=== PATIENT | female | born 1935 | race Caucasian/White ===

== ENCOUNTER 2016-12-10 08:15 | Inpatient (IN) | payer OTHER ==
[~2016-12-10] VITALS: Ht 170.2 cm; Wt 104.8 kg
[~2016-12-10 08:15] MED LIST: B-121000 MC2 PO; COZAAR50 MG PO; DUONEB 2.5-0.5 M3 ML AEROSOL; LASIX40 MG PO; LEVO-T50 MCG PO; LOSARTAN POTAS100 MG PO; LOW DOSE ASPIRI81 M1 PO; METOPROLOL SUCC25 MG PO; METOPROLOL SUCC50 MG PO; MEVACOR40 MG PO; PAXIL20 MG PO; PREDNISONE10 MG PO; PROBIOTIC1 EAC1 PO; SYMBICORT60 INHALAT IH; TOPROL XL50 MG PO; VENTOLIN HFA18 GM IH; VITAMIN D31000 UNI2 PO
[2016-12-10 09:25] LABS: BASOPHIL COUNT 0.1 K/uL (0-0.1); EOSINOPHIL (%) 1.4 % (0-5); EOSINOPHIL COUNT 0.3 K/uL (0-0.3); HEMATOCRIT 35.6 % (36.0-46.0); IMMATURE GRANULOCYTE (%) 0.4 % (0.0-0.7); IMMATURE GRANULOCYTE COUNT 0.8 K/uL; LYMPHOCYTE COUNT 1.3 K/uL (1.0-2.8); MCH 30.2 PG (29.0-34.0); MCHC 32.9 G/DL (30.0-36.0); MEAN PLAT.VOLUME 10.1 uM^3 (9.5-12.4); MONOCYTE (%) 4.9 % (3-12); NEUTROPHIL (%) 86.7 % (45-76); NEUTROPHIL COUNT 17.7 K/uL (1.8-6.4); PLATELET COUNT 285 K/uL (156-360); RBC DIS.WIDTH-CV 14.5 % (11.8-14.6); RBC DIS.WIDTH-SD 47.5 % (39-53); RED BLOOD COUNT 3.87 M/uL (3.80-5.20); WHITE BLOOD COUNT 20.4 K/uL (4.1-10.2)
[2016-12-10 09:37] LABS: CHLORIDE 98 mEq/L (99-109); POTASSIUM 3.9 mEq/L (3.7-5.4); SODIUM 139 mEq/L (136-147)
[2016-12-10 09:38] LABS: GLUCOSE 152 mg/dL (70-99)
[2016-12-10 09:40] LABS: ANION GAP 14 MEQ/L (2-14)
[2016-12-10 09:42] LABS: GFR ESTIMATE (CALCULATED) 46 mL/min/
[2016-12-10 09:43] LABS: UREA NITROGEN (BUN) 16 mg/dL (9-23)
[2016-12-10 09:45] LABS: TROP-I INTERPRETATION NEGATIVE; TROPONIN-I 0.03 ng/mL (0.0-0.30)
[2016-12-10] MEDS ORDERED: LASIX40 MG PO (11:57)
[2016-12-10] MEDS ORDERED: LOSARTAN POTASS50 MG PO (11:59)
[2016-12-10] MEDS ORDERED: PROBIOTIC1 EAC1 PO (12:01)
[2016-12-10] MEDS ORDERED: OCEAN NASAL 0.645 ML BOTH NARES (12:02)
[2016-12-10 15:41] LABS: D-DIMER ELISA 1.95 mg/L FEU (< 0.57)
[2016-12-10 16:20] VITALS: BP 151/76
[2016-12-10 18:55] LABS: TROP-I INTERPRETATION NEGATIVE; TROPONIN-I 0.05 ng/mL (0.0-0.30)
[2016-12-10 20:57] VITALS: BP 130/63
[2016-12-11 00:34] VITALS: BP 167/77
[2016-12-11 04:16] VITALS: BP 118/60
[2016-12-11 07:14] LABS: ANION GAP 11 MEQ/L (2-14); CHLORIDE 98 MEQ/L (99-109); GFR ESTIMATE (CALCULATED) 38 mL/min/; GLUCOSE 123 mg/dL (70-99); POTASSIUM 3.8 MEQ/L (3.7-5.4); SAMPLE HEMOLYSIS CHECK 0; SAMPLE ICTERIC CHECK 0; SAMPLE LIPEMIA CHECK 0; SODIUM 139 MEQ/L (136-147); UREA NITROGEN (BUN) 21 mg/dL (9-23)
[2016-12-11 07:29] LABS: HEMATOCRIT 32.9 % (36.0-46.0); MCH 28.9 PG (29.0-34.0); MCHC 31.3 G/DL (30.0-36.0); MCV 92.4 FL (83-99); MEAN PLAT.VOLUME 10.3 uM^3 (9.5-12.4); PLATELET COUNT 264 K/uL (156-360); RBC DIS.WIDTH-CV 14.8 % (11.8-14.6); RBC DIS.WIDTH-SD 49.6 % (39-53); RED BLOOD COUNT 3.56 M/uL (3.80-5.20)
[2016-12-11 07:32] LABS: WHITE BLOOD COUNT 11.6 K/uL (4.1-10.2)
[2016-12-11 07:55] VITALS: BP 143/73
[2016-12-11 11:20] VITALS: BP 158/83
[2016-12-11 15:40] VITALS: BP 155/82
[2016-12-11 19:46] VITALS: BP 133/71
[2016-12-12] VITALS: BP 160/74
[2016-12-12 04:00] VITALS: BP 112/55
[2016-12-12 08:02] VITALS: BP 126/54
[2016-12-12 09:04] LABS: HEMATOCRIT 32.3 % (36.0-46.0); MCH 30.2 PG (29.0-34.0); MCHC 32.8 G/DL (30.0-36.0); MEAN PLAT.VOLUME 10.5 uM^3 (9.5-12.4); PLATELET COUNT 265 K/uL (156-360); RBC DIS.WIDTH-CV 14.8 % (11.8-14.6); RBC DIS.WIDTH-SD 49.8 % (39-53); RED BLOOD COUNT 3.51 M/uL (3.80-5.20); WHITE BLOOD COUNT 12.5 K/uL (4.1-10.2)
[2016-12-12 09:46] LABS: ANION GAP 11 MEQ/L (2-14); CHLORIDE 99 MEQ/L (99-109); GFR ESTIMATE (CALCULATED) 50 mL/min/; GLUCOSE 126 mg/dL (70-99); POTASSIUM 3.9 MEQ/L (3.7-5.4); SAMPLE HEMOLYSIS CHECK 0; SAMPLE ICTERIC CHECK 0; SAMPLE LIPEMIA CHECK 0; SODIUM 138 MEQ/L (136-147); UREA NITROGEN (BUN) 21 mg/dL (9-23)
[2016-12-12 11:36] VITALS: BP 115/64
[2016-12-12 16:08] VITALS: BP 116/55
[2016-12-12 19:38] VITALS: BP 118/54
[2016-12-13] VITALS (7 sets, daily range): BP systolic 108–141; BP diastolic 51–66
[2016-12-14 03:39] VITALS: BP 138/63
[2016-12-14 07:57] VITALS: BP 157/76
[2016-12-14 15:43] VITALS: BP 154/81
[2016-12-15 00:12] VITALS: BP 133/63
[2016-12-15 07:39] VITALS: BP 139/66
[2016-12-15] MEDS ORDERED: PREDNISONE10 MG PO (13:03)
[2016-12-15] MEDS ORDERED: CEFDINIR300 MG PO (13:03)
== END 2016-12-15 14:26 | disposition home or self-care (01) | DRG 190 ==
LOC: EME 08:15 → 5SOUTH 12:39 → EDOF 12:39 → 5SOUTH 15:52
PROVIDERS: Emergency Medicine; Internal Medicine; Nurse Practitioner Adult Health
DX: J44.1 Chronic obstructive pulmonary disease with (acute) exacerbation (principal); J18.9 Pneumonia, unspecified organism; I50.32 Chronic diastolic (congestive) heart failure; F33.9 Major depressive disorder, recurrent, unspecified; N18.3 Chronic kidney disease, stage 3 (moderate); E78.5 Hyperlipidemia, unspecified; I25.10 Atherosclerotic heart disease of native coronary artery without angina pectoris; I12.9 Hypertensive chronic kidney disease with stage 1 through stage 4 chronic kidney disease, or unspecified chronic kidney disease; E66.9 Obesity, unspecified; R09.02 Hypoxemia; R59.0 Localized enlarged lymph nodes; J20.9 Acute bronchitis, unspecified; J84.10 Pulmonary fibrosis, unspecified; E03.9 Hypothyroidism, unspecified; M12.9 Arthropathy, unspecified; Z60.2 Problems related to living alone; Z99.81 Dependence on supplemental oxygen; Z87.891 Personal history of nicotine dependence; Z68.36 Body mass index [BMI] 36.0-36.9, adult; Z88.6 Allergy status to analgesic agent; Z95.5 Presence of coronary angioplasty implant and graft; Z88.2 Allergy status to sulfonamides; Z95.2 Presence of prosthetic heart valve
CPT/HCPCS: 71010; 71020; 71250; 78582; 80048; 83605; 83880; 84443; 84484; 85025; 85027; 85379; 87040; 87070; 87205; 93005; 94640; 94640 76; 94644; 94760; 94799; 99202; 99281; 99285; A9540; A9567; J0692; J1650; J1940; J1956; J2930; J7030; J7050; J7644

== ENCOUNTER 2017-02-11 16:51 | Inpatient (IN) | payer OTHER ==
[~2017-02-11] VITALS: Ht 170.2 cm; Wt 105.3 kg
[~2017-02-11 16:51] MED LIST changes: +CEFDINIR300 MG PO; +LOSARTAN POTASS50 MG PO; +OCEAN NASAL 0.645 ML BOTH NARES
[2017-02-11 17:56] LABS: BASOPHIL COUNT 0.1 K/uL (0-0.1); EOSINOPHIL (%) 1.4 % (0-5); EOSINOPHIL COUNT 0.1 K/uL (0-0.3); HEMATOCRIT 34.9 % (36.0-46.0); IMMATURE GRANULOCYTE (%) 0.2 % (0.0-0.7); INSTRUMENT ABS NEUTROPHIL CT 8.4 K/uL; LYMPHOCYTE COUNT 0.9 K/uL (1.0-2.8); MCH 27.9 PG (29.0-34.0); MCHC 32.1 G/DL (30.0-36.0); MCV 86.8 FL (83-99); MEAN PLAT.VOLUME 9.2 uM^3 (9.5-12.4); MONOCYTE (%) 7.2 % (3-12); MONOCYTE COUNT 0.7 K/uL (0-0.8); NEUTROPHIL (%) 81.9 % (45-76); NEUTROPHIL COUNT 8.4 K/uL (1.8-6.4); PLATELET COUNT 296 K/uL (156-360); RBC DIS.WIDTH-CV 15.3 % (11.8-14.6); RBC DIS.WIDTH-SD 48.6 % (39-53); RED BLOOD COUNT 4.02 M/uL (3.80-5.20); WHITE BLOOD COUNT 10.2 K/uL (4.1-10.2)
[2017-02-11 18:18] LABS: CHLORIDE 86 mEq/L (99-109); POTASSIUM 3.5 mEq/L (3.7-5.4); SODIUM 127 mEq/L (136-147)
[2017-02-11 18:20] LABS: GLUCOSE 112 mg/dL (70-99)
[2017-02-11 18:22] LABS: ANION GAP 12 MEQ/L (2-14)
[2017-02-11 18:24] LABS: ALKALINE PHOSPHATASE 80 IU/L (3-129); GFR ESTIMATE (CALCULATED) 56 mL/min/
[2017-02-11 18:25] LABS: UREA NITROGEN (BUN) 12 mg/dL (9-23)
[2017-02-11 18:29] LABS: TROP-I INTERPRETATION NEGATIVE; TROPONIN-I < 0.01 ng/mL (0.0-0.30)
[2017-02-11 18:32] LABS: D-DIMER ELISA 1.94 mg/L FEU (< 0.57)
[2017-02-11] MEDS ORDERED: DUONEB 2.5-0.5 M3 ML AEROSOL (22:13)
[2017-02-11] MEDS ORDERED: PAXIL30 MG PO (22:14)
[2017-02-11] MEDS ORDERED: METOLAZONE5 MG PO (22:15)
[2017-02-11] MEDS ORDERED: ZOFRAN4 MG PO (22:15)
[2017-02-11] MEDS ORDERED: TYLENOL EXTRA500 MG PO (22:15)
[2017-02-12 01:35] VITALS: BP 119/57
[2017-02-12 01:40] LABS: TROP-I INTERPRETATION NEGATIVE; TROPONIN-I 0.02 ng/mL (0.0-0.30)
[2017-02-12 03:20] VITALS: BP 112/78
[2017-02-12 07:28] LABS: TROP-I INTERPRETATION NEGATIVE; TROPONIN-I 0.02 ng/mL (0.0-0.30)
[2017-02-12 10:49] LABS: HEMATOCRIT 34.4 % (36.0-46.0); MCH 27.7 PG (29.0-34.0); MCHC 31.4 G/DL (30.0-36.0); MCV 88.2 FL (83-99); MEAN PLAT.VOLUME 10.2 uM^3 (9.5-12.4); PLATELET COUNT 279 K/uL (156-360); RBC DIS.WIDTH-CV 15.7 % (11.8-14.6); RBC DIS.WIDTH-SD 50.4 % (39-53); WHITE BLOOD COUNT 10.2 K/uL (4.1-10.2)
[2017-02-12 11:08] LABS: ANION GAP 13 MEQ/L (2-14); CHLORIDE 84 MEQ/L (99-109); GFR ESTIMATE (CALCULATED) 56 mL/min/; GLUCOSE 129 mg/dL (70-99); POTASSIUM 3.5 MEQ/L (3.7-5.4); SAMPLE HEMOLYSIS CHECK 0; SAMPLE ICTERIC CHECK 0; SAMPLE LIPEMIA CHECK 0; SODIUM 129 MEQ/L (136-147); UREA NITROGEN (BUN) 12 mg/dL (9-23)
[2017-02-12 11:59] VITALS: BP 137/61
[2017-02-12 16:00] VITALS: BP 135/60
[2017-02-12 19:30] VITALS: BP 132/71
[2017-02-13 00:40] VITALS: BP 133/63
[2017-02-13 04:52] VITALS: BP 136/62
[2017-02-13 09:42] LABS: HEMATOCRIT 33.6 % (36.0-46.0); MCH 27.8 PG (29.0-34.0); MCHC 32.1 G/DL (30.0-36.0); MCV 86.6 FL (83-99); MEAN PLAT.VOLUME 9.7 uM^3 (9.5-12.4); PLATELET COUNT 272 K/uL (156-360); RBC DIS.WIDTH-CV 15.5 % (11.8-14.6); RBC DIS.WIDTH-SD 49.1 % (39-53); RED BLOOD COUNT 3.88 M/uL (3.80-5.20)
[2017-02-13 09:45] LABS: WHITE BLOOD COUNT 7.1 K/uL (4.1-10.2)
[2017-02-13 09:46] LABS: ANION GAP 11 MEQ/L (2-14); CHLORIDE 85 MEQ/L (99-109); POTASSIUM 3.6 MEQ/L (3.7-5.4); SAMPLE HEMOLYSIS CHECK 0; SAMPLE ICTERIC CHECK 0; SAMPLE LIPEMIA CHECK 0; SODIUM 130 MEQ/L (136-147)
[2017-02-13 09:53] LABS: GFR ESTIMATE (CALCULATED) 46 mL/min/; GLUCOSE 177 mg/dL (70-99)
[2017-02-13 09:54] LABS: UREA NITROGEN (BUN) 21 mg/dL (9-23)
[2017-02-13 12:00] VITALS: BP 165/85
[2017-02-13 16:24] VITALS: BP 130/59
[2017-02-13 20:05] VITALS: BP 125/75
[2017-02-14 00:08] VITALS: BP 112/58
[2017-02-14 04:24] VITALS: BP 135/79
[2017-02-14 09:00] VITALS: BP 163/71
[2017-02-14 09:26] LABS: HEMATOCRIT 33.9 % (36.0-46.0); MCH 27.5 PG (29.0-34.0); MCHC 31.6 G/DL (30.0-36.0); MCV 87.1 FL (83-99); PLATELET COUNT 283 K/uL (156-360); RBC DIS.WIDTH-CV 15.6 % (11.8-14.6); RBC DIS.WIDTH-SD 49.6 % (39-53); RED BLOOD COUNT 3.89 M/uL (3.80-5.20); WHITE BLOOD COUNT 6.5 K/uL (4.1-10.2)
[2017-02-14 09:47] LABS: ANION GAP 10 MEQ/L (2-14); CHLORIDE 85 MEQ/L (99-109); GFR ESTIMATE (CALCULATED) 42 mL/min/; GLUCOSE 200 mg/dL (70-99); POTASSIUM 3.9 MEQ/L (3.7-5.4); SAMPLE HEMOLYSIS CHECK 0; SAMPLE ICTERIC CHECK 0; SAMPLE LIPEMIA CHECK 0; SODIUM 131 MEQ/L (136-147); UREA NITROGEN (BUN) 30 mg/dL (9-23)
[2017-02-14 12:06] VITALS: BP 135/65
[2017-02-14 15:46] VITALS: BP 132/66
[2017-02-14 21:54] VITALS: BP 133/73
[2017-02-15 00:23] VITALS: BP 137/81
[2017-02-15 04:39] VITALS: BP 140/80
[2017-02-15 08:40] VITALS: BP 137/78
[2017-02-15 16:11] VITALS: BP 142/66
[2017-02-15 20:15] VITALS: BP 135/82
[2017-02-15 23:57] VITALS: BP 142/80
[2017-02-16 04:51] VITALS: BP 146/72
[2017-02-16 07:27] LABS: EOSINOPHIL (%) 0.1 % (0-5); HEMATOCRIT 34.3 % (36.0-46.0); IMMATURE GRANULOCYTE (%) 0.6 % (0.0-0.7); IMMATURE GRANULOCYTE COUNT 0.1 K/uL; INSTRUMENT ABS NEUTROPHIL CT 6.7 K/uL; LYMPHOCYTE COUNT 0.8 K/uL (1.0-2.8); MCH 27.4 PG (29.0-34.0); MCHC 30.9 G/DL (30.0-36.0); MCV 88.6 FL (83-99); MEAN PLAT.VOLUME 9.8 uM^3 (9.5-12.4); MONOCYTE (%) 11.1 % (3-12); MONOCYTE COUNT 0.9 K/uL (0-0.8); NEUTROPHIL (%) 79.2 % (45-76); NEUTROPHIL COUNT 6.7 K/uL (1.8-6.4); PLATELET COUNT 257 K/uL (156-360); RBC DIS.WIDTH-CV 15.7 % (11.8-14.6); RBC DIS.WIDTH-SD 50.6 % (39-53); RED BLOOD COUNT 3.87 M/uL (3.80-5.20); WHITE BLOOD COUNT 8.4 K/uL (4.1-10.2)
[2017-02-16 07:31] LABS: ANION GAP 7 MEQ/L (2-14); CHLORIDE 87 MEQ/L (99-109); GFR ESTIMATE (CALCULATED) 42 mL/min/; GLUCOSE 165 mg/dL (70-99); MAGNESIUM 1.8 mg/dl (1.3-2.7); POTASSIUM 3.9 MEQ/L (3.7-5.4); SAMPLE HEMOLYSIS CHECK 0; SAMPLE ICTERIC CHECK 0; SAMPLE LIPEMIA CHECK 0; SODIUM 134 MEQ/L (136-147)
[2017-02-16 07:34] LABS: UREA NITROGEN (BUN) 47 mg/dL (9-23)
[2017-02-16 08:38] VITALS: BP 174/85
[2017-02-16 10:07] LABS: BASE EXCESS 16.5 mEq/L (-3 to +3); BICARBONATE 42.9 mEq/L (22-26); CARBOXY HGB 2.4 % (0-5); METHEMOGLOBIN 1.2 % (0-1.5); PCO2 59 mm Hg (35-45); PO2 66 mm Hg (80-100); pH 7.47 (7.35-7.45)
[2017-02-16 10:08] LABS: COMMENTS - BLOOD GASES NAC+; DEVICE CANNULA; O2 FLOW 2 L/MIN; SITE LR
[2017-02-16 12:09] VITALS: BP 136/65
[2017-02-16 17:26] VITALS: BP 174/78
[2017-02-16 20:25] VITALS: BP 140/72
[2017-02-17 00:19] VITALS: BP 141/75
[2017-02-17 04:30] VITALS: BP 169/79
[2017-02-17 06:52] LABS: EOSINOPHIL (%) 0.3 % (0-5); HEMATOCRIT 34.4 % (36.0-46.0); IMMATURE GRANULOCYTE (%) 0.3 % (0.0-0.7); INSTRUMENT ABS NEUTROPHIL CT 5.6 K/uL; LYMPHOCYTE COUNT 0.7 K/uL (1.0-2.8); MCH 27.2 PG (29.0-34.0); MCHC 30.8 G/DL (30.0-36.0); MCV 88.4 FL (83-99); MEAN PLAT.VOLUME 9.9 uM^3 (9.5-12.4); MONOCYTE (%) 10.5 % (3-12); MONOCYTE COUNT 0.7 K/uL (0-0.8); NEUTROPHIL (%) 79.5 % (45-76); NEUTROPHIL COUNT 5.6 K/uL (1.8-6.4); PLATELET COUNT 239 K/uL (156-360); RBC DIS.WIDTH-CV 15.4 % (11.8-14.6); RBC DIS.WIDTH-SD 50.1 % (39-53); RED BLOOD COUNT 3.89 M/uL (3.80-5.20)
[2017-02-17 07:15] LABS: ANION GAP 8 MEQ/L (2-14); CHLORIDE 90 MEQ/L (99-109); GFR ESTIMATE (CALCULATED) 42 mL/min/; GLUCOSE 170 mg/dL (70-99); MAGNESIUM 1.7 mg/dl (1.3-2.7); SAMPLE HEMOLYSIS CHECK 1; SAMPLE ICTERIC CHECK 0; SAMPLE LIPEMIA CHECK 0; SODIUM 132 MEQ/L (136-147); UREA NITROGEN (BUN) 45 mg/dL (9-23)
[2017-02-17 07:18] LABS: POTASSIUM 4.1 MEQ/L (3.7-5.4)
[2017-02-17 11:45] VITALS: BP 144/81
[2017-02-17] MEDS ORDERED: PREDNISONE20 MG PO (14:47)
[2017-02-17] MEDS ORDERED: FUROSEMIDE40 MG PO (14:48)
[2017-02-17] MEDS ORDERED: HYDROCORTISONE28 GM TP (14:49)
[2017-02-17 16:36] VITALS: BP 136/68; BP 178/77
== END 2017-02-17 18:52 | DRG 292 ==
LOC: EME 16:51 → EDOF 23:34 → 5WEST 23:34
PROVIDERS: Emergency Medicine; Internal Medicine; Nurse Practitioner Adult Health; Physician Assistant
DX: I50.33 Acute on chronic diastolic (congestive) heart failure (principal); J44.1 Chronic obstructive pulmonary disease with (acute) exacerbation; E87.1 Hypo-osmolality and hyponatremia; E78.00 Pure hypercholesterolemia, unspecified; Z95.5 Presence of coronary angioplasty implant and graft; I10 Essential (primary) hypertension; R53.1 Weakness; Z88.6 Allergy status to analgesic agent; Z88.2 Allergy status to sulfonamides; E87.6 Hypokalemia; I25.10 Atherosclerotic heart disease of native coronary artery without angina pectoris; E03.9 Hypothyroidism, unspecified; I48.91 Unspecified atrial fibrillation; I27.2 Other secondary pulmonary hypertension; Z68.38 Body mass index [BMI] 38.0-38.9, adult; K59.00 Constipation, unspecified; F41.9 Anxiety disorder, unspecified
CPT/HCPCS: 36600; 71010; 71275; 80048; 80053; 82803; 83735; 83880; 83930; 83935; 84300; 84484; 85025; 85027; 85379; 93005; 94640; 94640 76; 94760; 94799; 99202; 99281; 99285; G0378; G8978 GP CI; G8979 GP CH; G8987 GO CI; G8988 GO CH; J1120; J1650; J1940; J2930; J7512

== ENCOUNTER 2017-02-25 10:54 | Inpatient (IN) | payer OTHER ==
[~2017-02-25] VITALS: Ht 170.2 cm; Wt 96.9 kg
[~2017-02-25 10:54] MED LIST changes: +FUROSEMIDE40 MG PO; +HYDROCORTISONE28 GM TP; +METOLAZONE5 MG PO; +PAXIL30 MG PO; +PREDNISONE20 MG PO; +TYLENOL EXTRA500 MG PO; +ZOFRAN4 MG PO
[2017-02-25 12:10] LABS: EOSINOPHIL (%) 0.9 % (0-5); EOSINOPHIL COUNT 0.1 K/uL (0-0.3); HEMATOCRIT 37.4 % (36.0-46.0); IMMATURE GRANULOCYTE (%) 0.7 % (0.0-0.7); IMMATURE GRANULOCYTE COUNT 0.1 K/uL; INSTRUMENT ABS NEUTROPHIL CT 9.5 K/uL; LYMPHOCYTE COUNT 0.4 K/uL (1.0-2.8); MCH 27.1 PG (29.0-34.0); MCHC 30.7 G/DL (30.0-36.0); MCV 88.2 FL (83-99); MEAN PLAT.VOLUME 10.2 uM^3 (9.5-12.4); MONOCYTE (%) 4.2 % (3-12); MONOCYTE COUNT 0.4 K/uL (0-0.8); NEUTROPHIL (%) 90.2 % (45-76); NEUTROPHIL COUNT 9.5 K/uL (1.8-6.4); PLATELET COUNT 189 K/uL (156-360); RBC DIS.WIDTH-CV 16.3 % (11.8-14.6); RBC DIS.WIDTH-SD 52.6 % (39-53); RED BLOOD COUNT 4.24 M/uL (3.80-5.20); WHITE BLOOD COUNT 10.5 K/uL (4.1-10.2)
[2017-02-25 12:12] LABS: CHLORIDE 101 mEq/L (99-109); POTASSIUM 3.6 mEq/L (3.7-5.4); SODIUM 138 mEq/L (136-147)
[2017-02-25 12:13] LABS: GLUCOSE 138 mg/dL (70-99)
[2017-02-25 12:15] LABS: ANION GAP 9 MEQ/L (2-14)
[2017-02-25 12:17] LABS: GFR ESTIMATE (CALCULATED) > 59 mL/min/
[2017-02-25 12:18] LABS: UREA NITROGEN (BUN) 22 mg/dL (9-23)
[2017-02-25 12:20] LABS: CREATINE KINASE 13 IU/L (1-294)
[2017-02-25 12:23] LABS: TROP-I INTERPRETATION NEGATIVE; TROPONIN-I 0.12 ng/mL (0.0-0.30)
[2017-02-25 13:19] LABS: ADD MIUA? NO; BILIRUBIN NEGATIVE; BLOOD NEGATIVE; COLOR YELLOW ((YELLOW)); GLUCOSE (STRIP) NEGATIVE; KETONES NEGATIVE; LEUKOCYTES NEGATIVE; NITRITE NEGATIVE; PROTEIN (STRIP) 30; SPECIFIC GRAVITY 1.023 (1.000-1.030); UCUL ADDED? NO; UROBILINOGEN 0.2 MG/DL (0.2-1.0)
[2017-02-25] MEDS ORDERED: LASIX40 MG PO (13:33)
[2017-02-25] MEDS ORDERED: KLOR-CON M2020 MEQ PO (13:38)
[2017-02-25] MEDS ORDERED: DELTASONE20 M1 PO (13:39)
[2017-02-25] MEDS ORDERED: PREDNISONE10 MG PO (13:40)
[2017-02-25] MEDS ORDERED: AUGMENTIN875 MG PO (13:41)
[2017-02-25] MEDS ORDERED: DULERA 200 MCG/13 GM IH (13:42)
[2017-02-25] MEDS ORDERED: DULCOLAX10 MG PR (13:46)
[2017-02-25] MEDS ORDERED: MIRALAX255 GM PO (13:47)
[2017-02-25] MEDS ORDERED: MILK OF MAGN PO (13:47)
[2017-02-25 14:45] LABS: BASE EXCESS 6.8 mEq/L (-3 to +3); BICARBONATE 31.9 mEq/L (22-26); CARBOXY HGB 1.8 % (0-5); COMMENTS - BLOOD GASES A+C+; DEVICE NCHH; FI02 60 %; METHEMOGLOBIN 1.4 % (0-1.5); O2 FLOW 50 L/MIN; PCO2 47 mm Hg (35-45); PO2 178 mm Hg (80-100); SITE LR; TOTAL RESP RATE 20 resp/min; pH 7.44 (7.35-7.45)
[2017-02-25 16:36] VITALS: BP 115/64
[2017-02-25 16:46] LABS: INFLUENZA A VIRAL ANTIGEN POSITIVE; INFLUENZA B VIRAL ANTIGEN NEGATIVE
[2017-02-25 19:58] VITALS: BP 142/75
[2017-02-26] VITALS (7 sets, daily range): BP systolic 136–190; BP diastolic 76–120
[2017-02-26 08:51] LABS: ANION GAP 13 MEQ/L (2-14); CHLORIDE 99 MEQ/L (99-109); GFR ESTIMATE (CALCULATED) > 59 mL/min/; POTASSIUM 3.8 MEQ/L (3.7-5.4); SAMPLE HEMOLYSIS CHECK 0; SAMPLE ICTERIC CHECK 0; SAMPLE LIPEMIA CHECK 0; SODIUM 138 MEQ/L (136-147); UREA NITROGEN (BUN) 22 mg/dL (9-23)
[2017-02-26 08:52] LABS: GLUCOSE 221 mg/dL (70-99)
[2017-02-26 09:13] LABS: HEMATOCRIT 41.3 % (36.0-46.0); MCH 27.3 PG (29.0-34.0); MCHC 30.5 G/DL (30.0-36.0); MCV 89.4 FL (83-99); MEAN PLAT.VOLUME 11.2 uM^3 (9.5-12.4); PLATELET COUNT 146 K/uL (156-360); RBC DIS.WIDTH-CV 16.2 % (11.8-14.6); RBC DIS.WIDTH-SD 53.1 % (39-53); RED BLOOD COUNT 4.62 M/uL (3.80-5.20); WHITE BLOOD COUNT 7.8 K/uL (4.1-10.2)
[2017-02-27 05:19] VITALS: BP 145/87
[2017-02-27 08:15] VITALS: BP 133/82
[2017-02-27 12:15] VITALS: BP 167/78
[2017-02-27 15:35] VITALS: BP 137/75
[2017-02-27 18:41] LABS: TROP-I INTERPRETATION NEGATIVE; TROPONIN-I 0.05 ng/mL (0.0-0.30)
[2017-02-27 20:15] VITALS: BP 126/94
[2017-02-28 00:05] VITALS: BP 154/84
[2017-02-28 05:15] VITALS: BP 162/96
[2017-02-28 08:08] LABS: HEMATOCRIT 38.2 % (36.0-46.0); MCHC 30.6 G/DL (30.0-36.0); MCV 88.2 FL (83-99); MEAN PLAT.VOLUME 11.5 uM^3 (9.5-12.4); PLATELET COUNT 149 K/uL (156-360); RBC DIS.WIDTH-CV 15.9 % (11.8-14.6); RBC DIS.WIDTH-SD 52.7 % (39-53); RED BLOOD COUNT 4.33 M/uL (3.80-5.20); WHITE BLOOD COUNT 7.3 K/uL (4.1-10.2)
[2017-02-28 08:43] LABS: ANION GAP 9 MEQ/L (2-14); CHLORIDE 97 MEQ/L (99-109); GFR ESTIMATE (CALCULATED) 56 mL/min/; SAMPLE HEMOLYSIS CHECK 0; SAMPLE ICTERIC CHECK 0; SAMPLE LIPEMIA CHECK 0; SODIUM 133 MEQ/L (136-147); UREA NITROGEN (BUN) 33 mg/dL (9-23)
[2017-02-28 08:45] LABS: GLUCOSE 380 mg/dL (70-99); POTASSIUM 4.8 MEQ/L (3.7-5.4)
[2017-02-28 08:50] VITALS: BP 141/87
[2017-02-28 13:00] VITALS: BP 187/86
[2017-02-28 17:15] VITALS: BP 237/101
[2017-02-28 20:24] VITALS: BP 162/84
[2017-03-01] VITALS (7 sets, daily range): BP systolic 137–178; BP diastolic 74–102
[2017-03-01 06:21] LABS: HEMATOCRIT 37.7 % (36.0-46.0); MCH 27.4 PG (29.0-34.0); MCHC 31.6 G/DL (30.0-36.0); MCV 86.7 FL (83-99); MEAN PLAT.VOLUME 11.5 uM^3 (9.5-12.4); PLATELET COUNT 142 K/uL (156-360); RBC DIS.WIDTH-CV 15.6 % (11.8-14.6); RBC DIS.WIDTH-SD 49.6 % (39-53); RED BLOOD COUNT 4.35 M/uL (3.80-5.20); WHITE BLOOD COUNT 8.3 K/uL (4.1-10.2)
[2017-03-01 06:43] LABS: ANION GAP 10 MEQ/L (2-14); CHLORIDE 96 MEQ/L (99-109); GFR ESTIMATE (CALCULATED) 56 mL/min/; GLUCOSE 247 mg/dL (70-99); POTASSIUM 4.1 MEQ/L (3.7-5.4); SAMPLE HEMOLYSIS CHECK 0; SAMPLE ICTERIC CHECK 0; SAMPLE LIPEMIA CHECK 0; SODIUM 134 MEQ/L (136-147); UREA NITROGEN (BUN) 37 mg/dL (9-23)
[2017-03-01 16:39] LABS: POINT-OF-CARE METER ID UU14174216
[2017-03-01 21:22] LABS: POINT-OF-CARE METER ID UU14174216
[2017-03-02] VITALS (7 sets, daily range): BP systolic 126–172; BP diastolic 69–93
[2017-03-02 07:22] LABS: HEMATOCRIT 38.6 % (36.0-46.0); MCH 27.5 PG (29.0-34.0); MCHC 31.9 G/DL (30.0-36.0); MCV 86.2 FL (83-99); MEAN PLAT.VOLUME 11.8 uM^3 (9.5-12.4); PLATELET COUNT 157 K/uL (156-360); RBC DIS.WIDTH-CV 15.7 % (11.8-14.6); RBC DIS.WIDTH-SD 49.5 % (39-53); RED BLOOD COUNT 4.48 M/uL (3.80-5.20)
[2017-03-02 07:41] LABS: ANION GAP 9 MEQ/L (2-14); CHLORIDE 99 MEQ/L (99-109); GFR ESTIMATE (CALCULATED) > 59 mL/min/; POTASSIUM 4.1 MEQ/L (3.7-5.4); SAMPLE HEMOLYSIS CHECK 0; SAMPLE ICTERIC CHECK 0; SAMPLE LIPEMIA CHECK 0; SODIUM 138 MEQ/L (136-147); UREA NITROGEN (BUN) 31 mg/dL (9-23)
[2017-03-02 07:43] LABS: GLUCOSE 64 mg/dL (70-99)
[2017-03-02 11:44] LABS: POINT-OF-CARE METER ID UU14174216
[2017-03-02 16:12] LABS: POINT-OF-CARE METER ID UU14174216
[2017-03-03 03:28] VITALS: BP 145/90
[2017-03-03 07:41] LABS: POINT-OF-CARE METER ID UU14174216
[2017-03-03 11:20] LABS: POINT-OF-CARE METER ID UU14174216
[2017-03-03 16:27] LABS: POINT-OF-CARE METER ID UU14174216
[2017-03-03 18:24] LABS: ANION GAP 9 MEQ/L (2-14); CHLORIDE 94 MEQ/L (99-109); POTASSIUM 4.2 MEQ/L (3.7-5.4); SAMPLE HEMOLYSIS CHECK 0; SAMPLE ICTERIC CHECK 0; SAMPLE LIPEMIA CHECK 0; SODIUM 134 MEQ/L (136-147)
[2017-03-03 18:25] LABS: D-DIMER ELISA 1.19 mg/L FEU (< 0.57)
[2017-03-03 18:35] LABS: GFR ESTIMATE (CALCULATED) 56 mL/min/; GLUCOSE 245 mg/dL (70-99); UREA NITROGEN (BUN) 33 mg/dL (9-23)
[2017-03-03 19:04] LABS: EOSINOPHIL (%) 0 % (0-5); HEMATOCRIT 38.4 % (36.0-46.0); IMMATURE GRANULOCYTE (%) 0.4 % (0.0-0.7); INSTRUMENT ABS NEUTROPHIL CT 9.3 K/uL; LYMPHOCYTE COUNT 0.3 K/uL (1.0-2.8); MCH 27.4 PG (29.0-34.0); MCHC 31.8 G/DL (30.0-36.0); MCV 86.1 FL (83-99); MEAN PLAT.VOLUME 11.5 uM^3 (9.5-12.4); MONOCYTE (%) 1.6 % (3-12); MONOCYTE COUNT 0.2 K/uL (0-0.8); NEUTROPHIL (%) 95.1 % (45-76); NEUTROPHIL COUNT 9.3 K/uL (1.8-6.4); PLATELET COUNT 174 K/uL (156-360); RBC DIS.WIDTH-CV 15.9 % (11.8-14.6); RBC DIS.WIDTH-SD 49.8 % (39-53); RED BLOOD COUNT 4.46 M/uL (3.80-5.20); WHITE BLOOD COUNT 9.8 K/uL (4.1-10.2)
[2017-03-03 19:06] VITALS: BP 116/60
[2017-03-03 22:06] LABS: POINT-OF-CARE METER ID UU14174216
[2017-03-04 00:15] VITALS: BP 150/79
[2017-03-04 04:23] VITALS: BP 145/74
[2017-03-04 06:43] LABS: EOSINOPHIL (%) 0.5 % (0-5); EOSINOPHIL COUNT 0.1 K/uL (0-0.3); HEMATOCRIT 39.2 % (36.0-46.0); IMMATURE GRANULOCYTE (%) 0.5 % (0.0-0.7); IMMATURE GRANULOCYTE COUNT 0.1 K/uL; INSTRUMENT ABS NEUTROPHIL CT 11.6 K/uL; LYMPHOCYTE COUNT 0.7 K/uL (1.0-2.8); MCH 26.6 PG (29.0-34.0); MCHC 30.6 G/DL (30.0-36.0); MCV 86.9 FL (83-99); MEAN PLAT.VOLUME 11.1 uM^3 (9.5-12.4); MONOCYTE (%) 3.6 % (3-12); MONOCYTE COUNT 0.5 K/uL (0-0.8); NEUTROPHIL COUNT 11.6 K/uL (1.8-6.4); PLATELET COUNT 189 K/uL (156-360); RBC DIS.WIDTH-CV 16.2 % (11.8-14.6); RBC DIS.WIDTH-SD 50.7 % (39-53); RED BLOOD COUNT 4.51 M/uL (3.80-5.20)
[2017-03-04 06:54] LABS: ANION GAP 9 MEQ/L (2-14); CHLORIDE 97 MEQ/L (99-109); GFR ESTIMATE (CALCULATED) 56 mL/min/; GLUCOSE 135 mg/dL (70-99); POTASSIUM 4.1 MEQ/L (3.7-5.4); SAMPLE HEMOLYSIS CHECK 0; SAMPLE ICTERIC CHECK 0; SAMPLE LIPEMIA CHECK 0; SODIUM 138 MEQ/L (136-147); UREA NITROGEN (BUN) 29 mg/dL (9-23)
[2017-03-04 07:16] LABS: WHITE BLOOD COUNT 12.9 K/uL (4.1-10.2)
[2017-03-04 07:24] VITALS: BP 138/72
[2017-03-04 11:43] VITALS: BP 140/77
[2017-03-04 11:43] LABS: BASE EXCESS 10.8 mEq/L (-3 to +3); BICARBONATE 36.3 mEq/L (22-26); CARBOXY HGB 2.7 % (0-5); METHEMOGLOBIN 1.6 % (0-1.5); PCO2 51 mm Hg (35-45); pH 7.46 (7.35-7.45)
[2017-03-04 11:44] LABS: COMMENTS - BLOOD GASES A+C+; DEVICE NC; O2 FLOW 1 L/MIN; PO2 70 mm Hg (80-100); SITE RR
[2017-03-04 12:10] LABS: POINT-OF-CARE METER ID UU13113781
[2017-03-04 16:33] LABS: POINT-OF-CARE METER ID UU14174216
[2017-03-04 20:12] VITALS: BP 127/64
[2017-03-04 20:17] LABS: POINT-OF-CARE METER ID UU14174216
[2017-03-04 21:12] LABS: POINT-OF-CARE METER ID UU14174216
[2017-03-04 23:05] VITALS: BP 145/60
[2017-03-05 03:44] VITALS: BP 143/65
[2017-03-05 07:06] LABS: EOSINOPHIL (%) 0.8 % (0-5); EOSINOPHIL COUNT 0.1 K/uL (0-0.3); HEMATOCRIT 38.6 % (36.0-46.0); IMMATURE GRANULOCYTE (%) 0.7 % (0.0-0.7); IMMATURE GRANULOCYTE COUNT 0.1 K/uL; INSTRUMENT ABS NEUTROPHIL CT 15.4 K/uL; LYMPHOCYTE COUNT 0.6 K/uL (1.0-2.8); MCH 27.4 PG (29.0-34.0); MCHC 31.6 G/DL (30.0-36.0); MCV 86.5 FL (83-99); MONOCYTE (%) 2.9 % (3-12); MONOCYTE COUNT 0.5 K/uL (0-0.8); NEUTROPHIL (%) 91.9 % (45-76); NEUTROPHIL COUNT 15.4 K/uL (1.8-6.4); PLATELET COUNT 183 K/uL (156-360); RBC DIS.WIDTH-CV 16.3 % (11.8-14.6); RBC DIS.WIDTH-SD 51.2 % (39-53); RED BLOOD COUNT 4.46 M/uL (3.80-5.20); WHITE BLOOD COUNT 16.7 K/uL (4.1-10.2)
[2017-03-05 07:15] LABS: ANION GAP 7 MEQ/L (2-14); CHLORIDE 94 MEQ/L (99-109); GFR ESTIMATE (CALCULATED) > 59 mL/min/; GLUCOSE 155 mg/dL (70-99); POTASSIUM 3.6 MEQ/L (3.7-5.4); SAMPLE HEMOLYSIS CHECK 0; SAMPLE ICTERIC CHECK 0; SAMPLE LIPEMIA CHECK 0; SODIUM 135 MEQ/L (136-147); UREA NITROGEN (BUN) 24 mg/dL (9-23)
[2017-03-05 07:40] LABS: POINT-OF-CARE METER ID UU14174216
[2017-03-05 09:14] VITALS: BP 127/78
[2017-03-05 11:04] VITALS: BP 125/58
[2017-03-05 11:33] LABS: POINT-OF-CARE METER ID UU14174216
[2017-03-05] MEDS ORDERED: METOPROLOL SUCC50 MG PO (12:08)
[2017-03-05] MEDS ORDERED: LOSARTAN POTAS100 MG PO (12:08)
[2017-03-05] MEDS ORDERED: AMLODIPINE BESYL5 MG PO (12:08)
[2017-03-05] MEDS ORDERED: DELTASONE20 M1 PO (12:13)
[2017-03-05] MEDS ORDERED: PREDNISONE10 MG PO (12:13)
[2017-03-05] MEDS ORDERED: NOVOLOG PE100 UNITS/ SC (12:29)
== END 2017-03-05 14:45 | DRG 193 ==
LOC: EME → EDBD 10:54 → EME 10:54 → EDOF 14:26 → 4EAST 14:26
PROVIDERS: Emergency Medicine; Hospitalist; Physician Assistant; Student in an Organized Health Care Education/Training Program
PROC: 5A09357 Assistance with Respiratory Ventilation, Less than 24 Consecutive Hours, Continuous Positive Airway Pressure (ICD-10-PCS; principal; 2017-02-25)
DX: J10.00 Influenza due to other identified influenza virus with unspecified type of pneumonia (principal); J18.9 Pneumonia, unspecified organism; Z99.81 Dependence on supplemental oxygen; I48.91 Unspecified atrial fibrillation; I50.32 Chronic diastolic (congestive) heart failure; J44.1 Chronic obstructive pulmonary disease with (acute) exacerbation; I11.0 Hypertensive heart disease with heart failure; J96.01 Acute respiratory failure with hypoxia; R73.9 Hyperglycemia, unspecified; T38.0X5A Adverse effect of glucocorticoids and synthetic analogues, initial encounter; I25.10 Atherosclerotic heart disease of native coronary artery without angina pectoris; E78.5 Hyperlipidemia, unspecified; I27.2 Other secondary pulmonary hypertension; Z95.5 Presence of coronary angioplasty implant and graft; Z95.1 Presence of aortocoronary bypass graft; Z87.891 Personal history of nicotine dependence
CPT/HCPCS: 36600; 71010; 71275; 80048; 80048 91; 81003; 82550; 82803; 82948; 83605; 83880; 84484; 85025; 85025 91; 85027; 85379; 87040; 87070; 87205; 87502; 93005; 94002; 94640; 94640 76; 94667; 94760; 94799; 97530 GP; 99202; 99281; 99285; J0360; J1100; J1650; J1815; J1940; J1956; J2543; J2920; J2930; J3370; J7050; J7512; J7644

== ENCOUNTER → 2017-03-12 | Outpatient (CLI) | payer OTHER ==
[~2017-03-12] MED LIST changes: +AMLODIPINE BESYL5 MG PO; +AUGMENTIN875 MG PO; +DELTASONE20 M1 PO; +DULCOLAX10 MG PR; +DULERA 200 MCG/13 GM IH; +KLOR-CON M2020 MEQ PO; +MILK OF MAGN PO; +MIRALAX255 GM PO; +NOVOLOG PE100 UNITS/ SC
== END ==
LOC: RAD 08:29
DX: J98.8 Other specified respiratory disorders (principal)
CPT/HCPCS: 74230; 92611 GN; G8996 GN CI; G8997 GN CI; G8998 GN CI

== ENCOUNTER 2017-04-14 09:09 | Inpatient (IN) | payer OTHER ==
[~2017-04-14] VITALS: Ht 170.2 cm; Wt 96.0 kg
[2017-04-14] VITALS (10 sets, daily range): BP systolic 117–155; BP diastolic 67–100
[2017-04-14 09:39] LABS: BASOPHIL COUNT 0.1 K/uL (0-0.1); EOSINOPHIL (%) 3.4 % (0-5); EOSINOPHIL COUNT 0.3 K/uL (0-0.3); HEMATOCRIT 35.3 % (36.0-46.0); IMMATURE GRANULOCYTE (%) 0.4 % (0.0-0.7); INSTRUMENT ABS NEUTROPHIL CT 7.1 K/uL; LYMPHOCYTE COUNT 0.9 K/uL (1.0-2.8); MCH 27.8 PG (29.0-34.0); MCHC 31.2 G/DL (30.0-36.0); MCV 89.1 FL (83-99); MEAN PLAT.VOLUME 9.7 uM^3 (9.5-12.4); MONOCYTE (%) 8.3 % (3-12); MONOCYTE COUNT 0.8 K/uL (0-0.8); NEUTROPHIL (%) 77.5 % (45-76); NEUTROPHIL COUNT 7.1 K/uL (1.8-6.4); PLATELET COUNT 207 K/uL (156-360); RBC DIS.WIDTH-CV 18.8 % (11.8-14.6); RBC DIS.WIDTH-SD 61.5 % (39-53); RED BLOOD COUNT 3.96 M/uL (3.80-5.20); WHITE BLOOD COUNT 9.2 K/uL (4.1-10.2)
[2017-04-14 09:50] LABS: CHLORIDE 99 mEq/L (99-109); POTASSIUM 3.8 mEq/L (3.7-5.4); SODIUM 139 mEq/L (136-147)
[2017-04-14 09:52] LABS: GLUCOSE 128 mg/dL (70-99)
[2017-04-14 09:53] LABS: ANION GAP 11 MEQ/L (2-14)
[2017-04-14 09:54] LABS: TOTAL BILIRUBIN 0.8 mg/dL (0.0-1.0)
[2017-04-14 09:55] LABS: ALKALINE PHOSPHATASE 88 IU/L (3-129)
[2017-04-14 09:56] LABS: GFR ESTIMATE (CALCULATED) > 59 mL/min/
[2017-04-14 09:57] LABS: UREA NITROGEN (BUN) 13 mg/dL (9-23)
[2017-04-14 10:02] LABS: TROP-I INTERPRETATION NEGATIVE; TROPONIN-I < 0.01 ng/mL (0.0-0.30)
[2017-04-14] MEDS ORDERED: METOPROLOL SUCC25 MG PO ×2 (13:20→13:21)
[2017-04-14] MEDS ORDERED: METOPROLOL SUCC50 MG PO (13:21)
[2017-04-14] MEDS ORDERED: TOPROL XL50 MG PO (13:22)
[2017-04-14] MEDS ORDERED: DOCUSATE SODIU100 MG PO (13:24)
[2017-04-14] MEDS ORDERED: SYMBICORT60 INHALAT IH (13:25)
[2017-04-14] MEDS ORDERED: ACETAMINOPHEN325 M1 PO (13:25)
[2017-04-15 03:20] VITALS: BP 140/89
[2017-04-15 07:20] LABS: HEMATOCRIT 33.8 % (36.0-46.0); MCH 27.9 PG (29.0-34.0); MCHC 31.1 G/DL (30.0-36.0); MCV 89.7 FL (83-99); MEAN PLAT.VOLUME 10.3 uM^3 (9.5-12.4); PLATELET COUNT 214 K/uL (156-360); RBC DIS.WIDTH-CV 18.7 % (11.8-14.6); RBC DIS.WIDTH-SD 61.2 % (39-53); RED BLOOD COUNT 3.77 M/uL (3.80-5.20)
[2017-04-15 07:21] LABS: WHITE BLOOD COUNT 4.8 K/uL (4.1-10.2)
[2017-04-15 07:24] LABS: ANION GAP 10 MEQ/L (2-14); CHLORIDE 100 MEQ/L (99-109); GFR ESTIMATE (CALCULATED) 56 mL/min/; GLUCOSE 181 mg/dL (70-99); SAMPLE HEMOLYSIS CHECK 0; SAMPLE ICTERIC CHECK 0; SAMPLE LIPEMIA CHECK 0; SODIUM 137 MEQ/L (136-147); UREA NITROGEN (BUN) 19 mg/dL (9-23)
[2017-04-15 08:00] VITALS: BP 149/74
[2017-04-15 12:00] VITALS: BP 139/70
[2017-04-15 13:02] VITALS: BP 143/70
[2017-04-15 15:05] VITALS: BP 137/71
[2017-04-15 20:00] VITALS: BP 134/80
[2017-04-16] VITALS (8 sets, daily range): BP systolic 143–195; BP diastolic 72–98
[2017-04-16 06:14] LABS: EOSINOPHIL (%) 0 % (0-5); HEMATOCRIT 35.1 % (36.0-46.0); IMMATURE GRANULOCYTE COUNT 0.1 K/uL; INSTRUMENT ABS NEUTROPHIL CT 9.6 K/uL; LYMPHOCYTE COUNT 0.5 K/uL (1.0-2.8); MCHC 31.3 G/DL (30.0-36.0); MCV 89.3 FL (83-99); MEAN PLAT.VOLUME 10.6 uM^3 (9.5-12.4); MONOCYTE (%) 2.8 % (3-12); MONOCYTE COUNT 0.3 K/uL (0-0.8); NEUTROPHIL (%) 91.2 % (45-76); NEUTROPHIL COUNT 9.6 K/uL (1.8-6.4); PLATELET COUNT 232 K/uL (156-360); RBC DIS.WIDTH-CV 18.9 % (11.8-14.6); RBC DIS.WIDTH-SD 61.7 % (39-53); RED BLOOD COUNT 3.93 M/uL (3.80-5.20)
[2017-04-16 06:17] LABS: WHITE BLOOD COUNT 10.5 K/uL (4.1-10.2)
[2017-04-16 06:50] LABS: ANION GAP 8 MEQ/L (2-14); CHLORIDE 101 MEQ/L (99-109); GFR ESTIMATE (CALCULATED) 46 mL/min/; GLUCOSE 220 mg/dL (70-99); POTASSIUM 4.8 MEQ/L (3.7-5.4); SAMPLE HEMOLYSIS CHECK 0; SAMPLE ICTERIC CHECK 0; SAMPLE LIPEMIA CHECK 0; SODIUM 135 MEQ/L (136-147)
[2017-04-16 06:56] LABS: UREA NITROGEN (BUN) 33 mg/dL (9-23)
[2017-04-17 03:44] VITALS: BP 144/75
[2017-04-17 07:53] VITALS: BP 143/82
[2017-04-17 11:36] VITALS: BP 158/85
[2017-04-17 16:01] VITALS: BP 155/88
[2017-04-17 23:42] VITALS: BP 153/80
[2017-04-18 06:57] LABS: EOSINOPHIL (%) 0.1 % (0-5); HEMATOCRIT 32.9 % (36.0-46.0); IMMATURE GRANULOCYTE COUNT 0.1 K/uL; INSTRUMENT ABS NEUTROPHIL CT 5.5 K/uL; MCH 27.8 PG (29.0-34.0); MCHC 31.3 G/DL (30.0-36.0); MCV 88.7 FL (83-99); MEAN PLAT.VOLUME 10.2 uM^3 (9.5-12.4); MONOCYTE (%) 9.2 % (3-12); MONOCYTE COUNT 0.7 K/uL (0-0.8); NEUTROPHIL (%) 76.2 % (45-76); NEUTROPHIL COUNT 5.5 K/uL (1.8-6.4); PLATELET COUNT 210 K/uL (156-360); RBC DIS.WIDTH-CV 18.5 % (11.8-14.6); RBC DIS.WIDTH-SD 60.7 % (39-53); RED BLOOD COUNT 3.71 M/uL (3.80-5.20)
[2017-04-18 07:07] LABS: WHITE BLOOD COUNT 7.3 K/uL (4.1-10.2)
[2017-04-18 07:41] LABS: ANION GAP 11 MEQ/L (2-14); CHLORIDE 99 MEQ/L (99-109); GFR ESTIMATE (CALCULATED) 50 mL/min/; GLUCOSE 166 mg/dL (70-99); SAMPLE HEMOLYSIS CHECK 0; SAMPLE ICTERIC CHECK 0; SAMPLE LIPEMIA CHECK 0; SODIUM 136 MEQ/L (136-147); UREA NITROGEN (BUN) 38 mg/dL (9-23)
[2017-04-18 07:42] LABS: POTASSIUM 3.8 MEQ/L (3.7-5.4)
[2017-04-18 09:07] VITALS: BP 183/95
[2017-04-18 15:00] VITALS: BP 129/89
[2017-04-18 15:40] VITALS: BP 157/89
[2017-04-18 23:43] VITALS: BP 151/70
[2017-04-19 07:55] LABS: HEMATOCRIT 35.4 % (36.0-46.0); MCH 27.8 PG (29.0-34.0); MCHC 31.4 G/DL (30.0-36.0); MCV 88.5 FL (83-99); MEAN PLAT.VOLUME 10.6 uM^3 (9.5-12.4); PLATELET COUNT 164 K/uL (156-360); RBC DIS.WIDTH-CV 18.6 % (11.8-14.6); RBC DIS.WIDTH-SD 60.5 % (39-53); WHITE BLOOD COUNT 8.2 K/uL (4.1-10.2)
[2017-04-19 08:08] VITALS: BP 185/108
[2017-04-19 08:31] LABS: ANION GAP 11 MEQ/L (2-14); CHLORIDE 102 MEQ/L (99-109); GFR ESTIMATE (CALCULATED) 50 mL/min/; GLUCOSE 119 mg/dL (70-99); MAGNESIUM 2.1 mg/dl (1.3-2.7); POTASSIUM 3.8 MEQ/L (3.7-5.4); SAMPLE HEMOLYSIS CHECK 0; SAMPLE ICTERIC CHECK 0; SAMPLE LIPEMIA CHECK 0; SODIUM 140 MEQ/L (136-147); UREA NITROGEN (BUN) 35 mg/dL (9-23)
[2017-04-19 09:36] VITALS: BP 147/76
[2017-04-19 15:44] VITALS: BP 144/73
[2017-04-19 18:49] VITALS: BP 162/80
[2017-04-20] VITALS (7 sets, daily range): BP systolic 135–196; BP diastolic 62–104
[2017-04-20 07:27] LABS: EOSINOPHIL COUNT 0.1 K/uL (0-0.3); HEMATOCRIT 33.3 % (36.0-46.0); IMMATURE GRANULOCYTE (%) 1.6 % (0.0-0.7); IMMATURE GRANULOCYTE COUNT 0.1 K/uL; INSTRUMENT ABS NEUTROPHIL CT 5.4 K/uL; MCHC 31.5 G/DL (30.0-36.0); MCV 88.8 FL (83-99); MEAN PLAT.VOLUME 10.3 uM^3 (9.5-12.4); MONOCYTE (%) 9.8 % (3-12); MONOCYTE COUNT 0.7 K/uL (0-0.8); NEUTROPHIL (%) 73.3 % (45-76); NEUTROPHIL COUNT 5.4 K/uL (1.8-6.4); PLATELET COUNT 206 K/uL (156-360); RBC DIS.WIDTH-CV 18.9 % (11.8-14.6); RBC DIS.WIDTH-SD 61.8 % (39-53); RED BLOOD COUNT 3.75 M/uL (3.80-5.20); WHITE BLOOD COUNT 7.3 K/uL (4.1-10.2)
[2017-04-20 07:53] LABS: ANION GAP 10 MEQ/L (2-14); CHLORIDE 100 MEQ/L (99-109); GFR ESTIMATE (CALCULATED) > 59 mL/min/; GLUCOSE 132 mg/dL (70-99); POTASSIUM 3.9 MEQ/L (3.7-5.4); SAMPLE HEMOLYSIS CHECK 0; SAMPLE ICTERIC CHECK 0; SAMPLE LIPEMIA CHECK 0; SODIUM 141 MEQ/L (136-147); UREA NITROGEN (BUN) 33 mg/dL (9-23)
[2017-04-21 07:17] VITALS: BP 171/82
[2017-04-21] MEDS ORDERED: PREDNISONE5 MG PO (12:07)
[2017-04-21] MEDS ORDERED: CEFDINIR300 MG PO (12:07)
[2017-04-21] MEDS ORDERED: LISINOPRIL5 MG PO (12:07)
[2017-04-21 12:24] VITALS: BP 186/82
[2017-04-21 14:00] VITALS: BP 114/57
[2017-04-21 14:57] VITALS: BP 106/56
== END 2017-04-21 16:49 | disposition home health service (06) | DRG 871 ==
LOC: EME 09:09 → 2EASTP 14:00 → EDOF 14:00 → 5SOUTH 14:00 → 2EASTP 19:27 → 5SOUTH 04-15 12:04 → 2EASTP 04-15 12:07 → 5SOUTH 04-15 12:41
PROVIDERS: Emergency Medicine; Hospitalist; Internal Medicine; Student in an Organized Health Care Education/Training Program
DX: A41.9 Sepsis, unspecified organism (principal); J44.0 Chronic obstructive pulmonary disease with (acute) lower respiratory infection; J18.9 Pneumonia, unspecified organism; I48.2 Chronic atrial fibrillation; E78.5 Hyperlipidemia, unspecified; I50.32 Chronic diastolic (congestive) heart failure; J44.1 Chronic obstructive pulmonary disease with (acute) exacerbation; J20.9 Acute bronchitis, unspecified; Y95 Nosocomial condition; I10 Essential (primary) hypertension; J84.10 Pulmonary fibrosis, unspecified; I25.10 Atherosclerotic heart disease of native coronary artery without angina pectoris; J84.9 Interstitial pulmonary disease, unspecified; E66.9 Obesity, unspecified; R29.6 Repeated falls; Z68.33 Body mass index [BMI] 33.0-33.9, adult; Z98.61 Coronary angioplasty status; Z91.81 History of falling
CPT/HCPCS: 70450; 70486; 71010; 71020; 80048; 80053; 81003; 83605; 83735; 83880; 84484; 85025; 85027; 87040; 87070; 87205; 93005; 94640; 94640 76; 94667; 94668; 94799; 99202; 99281; 99285; J0360; J0456; J0692; J1644; J2543; J2920; J2930; J3370; J7030; J7050; J7512

== ENCOUNTER 2017-05-28 12:42 | Inpatient (IN) | payer OTHER ==
[~2017-05-28] VITALS: Ht 170.2 cm; Wt 90.2 kg
[~2017-05-28 12:42] MED LIST changes: +ACETAMINOPHEN325 M1 PO; +DOCUSATE SODIU100 MG PO; +LISINOPRIL5 MG PO; +PREDNISONE5 MG PO
[2017-05-28 13:27] LABS: HEMATOCRIT 33.1 % (36.0-46.0); MCH 28.4 PG (29.0-34.0); MCHC 31.1 G/DL (30.0-36.0); MCV 91.2 FL (83-99); MEAN PLAT.VOLUME 9.2 uM^3 (9.5-12.4); PLATELET COUNT 331 K/uL (156-360); RBC DIS.WIDTH-CV 16.3 % (11.8-14.6); RBC DIS.WIDTH-SD 54.5 % (39-53); RED BLOOD COUNT 3.63 M/uL (3.80-5.20); WHITE BLOOD COUNT 11.8 K/uL (4.1-10.2)
[2017-05-28 13:35] LABS: CHLORIDE 95 mEq/L (99-109); POTASSIUM 4.4 mEq/L (3.7-5.4); SODIUM 133 mEq/L (136-147)
[2017-05-28 13:36] LABS: GLUCOSE 161 mg/dL (70-99)
[2017-05-28 13:38] LABS: ANION GAP 9 MEQ/L (2-14)
[2017-05-28 13:40] LABS: GFR ESTIMATE (CALCULATED) 56 mL/min/
[2017-05-28 13:41] LABS: UREA NITROGEN (BUN) 19 mg/dL (9-23)
[2017-05-28 14:15] LABS: ADD MIUA? YES; BILIRUBIN NEGATIVE; BLOOD NEGATIVE; GLUCOSE (STRIP) NEGATIVE; KETONES NEGATIVE; LEUKOCYTES LARGE; NITRITE NEGATIVE; PROTEIN (STRIP) NEGATIVE; SPECIFIC GRAVITY 1.006 (1.000-1.030); UROBILINOGEN 0.2 MG/DL (0.2-1.0)
[2017-05-28 14:16] LABS: COLOR LT YELLOW ((YELLOW))
[2017-05-28 14:22] LABS: BACTERIA RARE /HPF; EPITHELIAL CELLS 1+ /HPF; MUCUS TRACE /LPF; RED BLOOD CELLS 0-5 /HPF (0-5); UCUL ADDED? NO; WHITE BLOOD CELLS 20-30 /HPF (0-5)
[2017-05-28 14:30] LABS: TROP-I INTERPRETATION NEGATIVE; TROPONIN-I 0.06 ng/mL (0.0-0.30)
[2017-05-28] MEDS ORDERED: PAXIL20 MG PO (16:06)
[2017-05-28] MEDS ORDERED: MIRALAX255 GM PO (16:07)
[2017-05-28] MEDS ORDERED: DIGITEK250 MC2 PO (16:08)
[2017-05-28] MEDS ORDERED: ALPRAZOLAM0.25 M2 PO (16:08)
[2017-05-28] MEDS ORDERED: AZITHROMYCIN500 M1 PO (16:08)
[2017-05-28 19:50] VITALS: BP 138/63
[2017-05-29 00:31] VITALS: BP 128/62
[2017-05-29 06:14] LABS: MCH 29.2 PG (29.0-34.0); MCHC 31.9 G/DL (30.0-36.0); MCV 91.7 FL (83-99); MEAN PLAT.VOLUME 9.8 uM^3 (9.5-12.4); PLATELET COUNT 341 K/uL (156-360); RBC DIS.WIDTH-CV 16.3 % (11.8-14.6); RBC DIS.WIDTH-SD 54.4 % (39-53); RED BLOOD COUNT 3.49 M/uL (3.80-5.20); WHITE BLOOD COUNT 6.8 K/uL (4.1-10.2)
[2017-05-29 06:37] LABS: ANION GAP 8 MEQ/L (2-14); CHLORIDE 97 MEQ/L (99-109); GFR ESTIMATE (CALCULATED) 56 mL/min/; GLUCOSE 191 mg/dL (70-99); POTASSIUM 4.7 MEQ/L (3.7-5.4); SAMPLE HEMOLYSIS CHECK 0; SAMPLE ICTERIC CHECK 0; SAMPLE LIPEMIA CHECK 0; SODIUM 137 MEQ/L (136-147); UREA NITROGEN (BUN) 20 mg/dL (9-23)
[2017-05-29 06:40] LABS: TROP-I INTERPRETATION NEGATIVE; TROPONIN-I 0.06 ng/mL (0.0-0.30)
[2017-05-29 07:44] LABS: INTERNAL CONTROL VALID? YES
[2017-05-29 07:58] VITALS: BP 165/86
[2017-05-29 11:23] VITALS: BP 153/66
[2017-05-29 14:19] VITALS: BP 126/69
[2017-05-29 20:36] VITALS: BP 134/58
[2017-05-30 00:24] VITALS: BP 122/64
[2017-05-30 04:19] VITALS: BP 153/67
[2017-05-30 06:50] LABS: HEMATOCRIT 31.5 % (36.0-46.0); MCHC 32.1 G/DL (30.0-36.0); MCV 90.5 FL (83-99); MEAN PLAT.VOLUME 9.7 uM^3 (9.5-12.4); PLATELET COUNT 354 K/uL (156-360); RBC DIS.WIDTH-CV 16.6 % (11.8-14.6); RED BLOOD COUNT 3.48 M/uL (3.80-5.20); WHITE BLOOD COUNT 14.6 K/uL (4.1-10.2)
[2017-05-30 07:40] LABS: ANION GAP 9 MEQ/L (2-14); CHLORIDE 95 MEQ/L (99-109); GFR ESTIMATE (CALCULATED) 46 mL/min/; GLUCOSE 148 mg/dL (70-99); POTASSIUM 4.4 MEQ/L (3.7-5.4); SAMPLE HEMOLYSIS CHECK 0; SAMPLE ICTERIC CHECK 0; SAMPLE LIPEMIA CHECK 0; SODIUM 136 MEQ/L (136-147)
[2017-05-30 07:42] LABS: UREA NITROGEN (BUN) 31 mg/dL (9-23)
[2017-05-30 08:16] VITALS: BP 170/90
[2017-05-30 14:45] VITALS: BP 167/70
[2017-05-31 04:32] VITALS: BP 157/72
[2017-05-31 06:11] LABS: HEMATOCRIT 32.7 % (36.0-46.0); MCH 28.5 PG (29.0-34.0); MCHC 31.5 G/DL (30.0-36.0); MCV 90.6 FL (83-99); MEAN PLAT.VOLUME 9.7 uM^3 (9.5-12.4); PLATELET COUNT 362 K/uL (156-360); RBC DIS.WIDTH-CV 16.5 % (11.8-14.6); RBC DIS.WIDTH-SD 54.1 % (39-53); RED BLOOD COUNT 3.61 M/uL (3.80-5.20)
[2017-05-31 06:32] LABS: ANION GAP 13 MEQ/L (2-14); CHLORIDE 95 MEQ/L (99-109); GFR ESTIMATE (CALCULATED) 50 mL/min/; GLUCOSE 195 mg/dL (70-99); POTASSIUM 4.4 MEQ/L (3.7-5.4); SAMPLE HEMOLYSIS CHECK 0; SAMPLE ICTERIC CHECK 0; SAMPLE LIPEMIA CHECK 0; SODIUM 138 MEQ/L (136-147); UREA NITROGEN (BUN) 34 mg/dL (9-23)
[2017-05-31 09:48] VITALS: BP 183/73
[2017-05-31 11:27] VITALS: BP 144/75
[2017-05-31 17:28] VITALS: BP 154/72
[2017-05-31 21:14] VITALS: BP 170/72
[2017-06-01 00:25] VITALS: BP 164/74
[2017-06-01 06:23] LABS: ANION GAP 13 MEQ/L (2-14); CHLORIDE 95 MEQ/L (99-109); GFR ESTIMATE (CALCULATED) 46 mL/min/; GLUCOSE 124 mg/dL (70-99); SAMPLE HEMOLYSIS CHECK 0; SAMPLE ICTERIC CHECK 0; SAMPLE LIPEMIA CHECK 0; SODIUM 139 MEQ/L (136-147); UREA NITROGEN (BUN) 38 mg/dL (9-23)
[2017-06-01 07:32] LABS: HEMATOCRIT 32.4 % (36.0-46.0); MCH 28.2 PG (29.0-34.0); MCHC 30.9 G/DL (30.0-36.0); MCV 91.5 FL (83-99); MEAN PLAT.VOLUME 9.9 uM^3 (9.5-12.4); PLATELET COUNT 323 K/uL (156-360); RBC DIS.WIDTH-CV 16.5 % (11.8-14.6); RBC DIS.WIDTH-SD 54.9 % (39-53); RED BLOOD COUNT 3.54 M/uL (3.80-5.20); WHITE BLOOD COUNT 10.1 K/uL (4.1-10.2)
[2017-06-01 08:21] VITALS: BP 154/74
[2017-06-01 11:40] VITALS: BP 153/71
[2017-06-01 15:20] VITALS: BP 138/67
[2017-06-01 20:02] VITALS: BP 142/65
[2017-06-01 23:32] VITALS: BP 164/71
[2017-06-02 04:28] VITALS: BP 129/61
[2017-06-02 06:12] LABS: ANION GAP 10 MEQ/L (2-14); CHLORIDE 95 MEQ/L (99-109); GFR ESTIMATE (CALCULATED) 56 mL/min/; GLUCOSE 157 mg/dL (70-99); POTASSIUM 3.8 MEQ/L (3.7-5.4); SAMPLE HEMOLYSIS CHECK 0; SAMPLE ICTERIC CHECK 0; SAMPLE LIPEMIA CHECK 0; SODIUM 138 MEQ/L (136-147); UREA NITROGEN (BUN) 38 mg/dL (9-23)
[2017-06-02 08:17] VITALS: BP 155/70
[2017-06-02] MEDS ORDERED: PREDNISONE10 MG PO (08:48)
[2017-06-02] MEDS ORDERED: METOPROLOL SUCC50 MG PO (08:49)
[2017-06-02] MEDS ORDERED: LOSARTAN POTASS50 MG PO (09:31)
[2017-06-02 11:10] VITALS: BP 140/70
== END 2017-06-02 16:22 | disposition home or self-care (01) | DRG 292 ==
LOC: EME 12:42 → EDOF 16:32 → 5SOUTH 16:32
PROVIDERS: Emergency Medicine; Hospitalist; Internal Medicine; Nurse Practitioner Adult Health
DX: I11.0 Hypertensive heart disease with heart failure (principal); I50.33 Acute on chronic diastolic (congestive) heart failure; J96.11 Chronic respiratory failure with hypoxia; J44.1 Chronic obstructive pulmonary disease with (acute) exacerbation; E87.1 Hypo-osmolality and hyponatremia; L03.115 Cellulitis of right lower limb; I27.2 Other secondary pulmonary hypertension; Z99.81 Dependence on supplemental oxygen; R26.81 Unsteadiness on feet; I25.10 Atherosclerotic heart disease of native coronary artery without angina pectoris; I48.2 Chronic atrial fibrillation; E78.5 Hyperlipidemia, unspecified; K59.00 Constipation, unspecified; Z79.51 Long term (current) use of inhaled steroids; Z79.82 Long term (current) use of aspirin; Z95.1 Presence of aortocoronary bypass graft; Z95.5 Presence of coronary angioplasty implant and graft; Z91.81 History of falling
CPT/HCPCS: 71010; 71020; 71250; 80048; 81003; 83880; 84484; 85027; 87040; 87070; 87086; 87205; 87449; 93005; 94640; 94640 76; 94760; 94799; 99202; 99281; 99285; J0692; J0696; J1650; J1940; J2920; J3370; J7030; J7050; J7512

== ENCOUNTER 2017-07-10 09:31 | Emergency (ER) | payer OTHER ==
[~2017-07-10] VITALS: Ht 170.2 cm; Wt 89.5 kg
[~2017-07-10 09:31] MED LIST changes: +ALPRAZOLAM0.25 M2 PO; +AZITHROMYCIN500 M1 PO; +DIGITEK250 MC2 PO
[2017-07-10 11:43] LABS: HEMATOCRIT 32.9 % (36.0-46.0); MCHC 30.4 G/DL (30.0-36.0); MCV 88.7 FL (83-99); MEAN PLAT.VOLUME 9.7 uM^3 (9.5-12.4); PLATELET COUNT 295 K/uL (156-360); RBC DIS.WIDTH-SD 48.4 % (39-53); RED BLOOD COUNT 3.71 M/uL (3.80-5.20); WHITE BLOOD COUNT 7.8 K/uL (4.1-10.2)
[2017-07-10 11:54] LABS: CHLORIDE 97 mEq/L (99-109); POTASSIUM 3.4 mEq/L (3.7-5.4); SODIUM 140 mEq/L (136-147)
[2017-07-10 11:56] LABS: GLUCOSE 121 mg/dL (70-99)
[2017-07-10 11:57] LABS: ANION GAP 12 MEQ/L (2-14)
[2017-07-10 11:58] LABS: TOTAL BILIRUBIN 0.7 mg/dL (0.0-1.0)
[2017-07-10 12:00] LABS: ALKALINE PHOSPHATASE 96 IU/L (3-129); GFR ESTIMATE (CALCULATED) 56 mL/min/
[2017-07-10 12:01] LABS: UREA NITROGEN (BUN) 20 mg/dL (9-23)
[2017-07-10] MEDS ORDERED: PREDNISONE10 M1 PO (12:43)
[2017-07-10 13:11] VITALS: BP 144/66
== END 2017-07-10 13:14 | disposition home or self-care (01) ==
LOC: EME 09:31
PROVIDERS: Emergency Medicine
DX: M25.50 Pain in unspecified joint (principal); D64.9 Anemia, unspecified; M79.89 Other specified soft tissue disorders; M13.862 Other specified arthritis, left knee; M13.861 Other specified arthritis, right knee; I10 Essential (primary) hypertension; E78.5 Hyperlipidemia, unspecified; J44.9 Chronic obstructive pulmonary disease, unspecified; Z99.81 Dependence on supplemental oxygen; Z95.1 Presence of aortocoronary bypass graft; Z95.5 Presence of coronary angioplasty implant and graft; Z79.82 Long term (current) use of aspirin; Z87.891 Personal history of nicotine dependence
CPT/HCPCS: 71020; 80053; 85027; 99281; 99284; J7512

== ENCOUNTER 2017-10-05 12:32 | Emergency (ER) | payer OTHER ==
[~2017-10-05] VITALS: Ht 170.2 cm; Wt 96.4 kg
[~2017-10-05 12:32] MED LIST changes: +PREDNISONE10 M1 PO
[2017-10-05 15:11] VITALS: BP 140/66
== END 2017-10-05 15:13 | disposition home or self-care (01) ==
LOC: EME 12:32
DX: S46.911A Strain of unspecified muscle, fascia and tendon at shoulder and upper arm level, right arm, initial encounter (principal); S83.91XA Sprain of unspecified site of right knee, initial encounter; S00.83XA Contusion of other part of head, initial encounter; W01.198A Fall on same level from slipping, tripping and stumbling with subsequent striking against other object, initial encounter; Y93.89 Activity, other specified; Y92.199 Unspecified place in other specified residential institution as the place of occurrence of the external cause; J44.9 Chronic obstructive pulmonary disease, unspecified; I10 Essential (primary) hypertension; E78.5 Hyperlipidemia, unspecified; Z85.9 Personal history of malignant neoplasm, unspecified; Z95.5 Presence of coronary angioplasty implant and graft; Z95.1 Presence of aortocoronary bypass graft; Z87.891 Personal history of nicotine dependence; Z88.6 Allergy status to analgesic agent
CPT/HCPCS: 70450; 73060; 73564; 99281; 99284

== ENCOUNTER 2017-12-17 15:44 | Inpatient (IN) | payer OTHER ==
[~2017-12-17] VITALS: Ht 170.2 cm; Wt 100.9 kg
[~2017-12-17 15:44] MED LIST changes: +KLOR-CON M1010 MEQ PO; -KLOR-CON M2020 MEQ PO
[2017-12-17 18:01] LABS: HEMATOCRIT 36.3 % (36.0-46.0); HEMOGLOBIN 11.1 G/DL (11.9-15.5); MCH 23.8 PG (29.0-34.0); MCHC 30.6 G/DL (30.0-36.0); MCV 77.7 FL (83-99); PLATELET COUNT 257 K/uL (156-360); RBC DIS.WIDTH-CV 18.6 % (11.8-14.6); RBC DIS.WIDTH-SD 51.3 % (39-53); RED BLOOD COUNT 4.67 M/uL (3.80-5.20); WHITE BLOOD COUNT 5.4 K/uL (4.1-10.2)
[2017-12-17 18:16] LABS: ALBUMIN 2.9 g/dL (3.2-4.8)
[2017-12-17 18:17] LABS: CHLORIDE 94 mEq/L (99-109); POTASSIUM 3.9 mEq/L (3.7-5.4); SODIUM 133 mEq/L (136-147)
[2017-12-17 18:19] LABS: GLUCOSE 111 mg/dL (70-99); TOTAL PROTEIN 7.9 g/dL (6.4-8.3)
[2017-12-17 18:21] LABS: TOTAL BILIRUBIN 1.4 mg/dL (0.0-1.0)
[2017-12-17 18:22] LABS: ALKALINE PHOSPHATASE 237 IU/L (3-129)
[2017-12-17 18:23] LABS: CREATININE 1.4 mg/dL (0.6-1.3); GFR ESTIMATE (CALCULATED) 38 mL/min/
[2017-12-17 18:24] LABS: AST (GOT) 26 IU/L (2-34); UREA NITROGEN (BUN) 26 mg/dL (9-23)
[2017-12-17 18:25] LABS: ALT (GPT) 7 IU/L (3-49); TROP-I INTERPRETATION NEGATIVE; TROPONIN-I 0.02 ng/mL (0.0-0.30)
[2017-12-17] MEDS ORDERED: ULTRAM50 MG PO (20:44)
[2017-12-17] MEDS ORDERED: TOPROL XL50 MG PO (20:46)
[2017-12-17] MEDS ORDERED: COZAAR50 MG PO (20:46)
[2017-12-18] VITALS (10 sets, daily range): BP systolic 100–134; BP diastolic 49–63
[2017-12-18 01:49] LABS: MAGNESIUM 1.8 mg/dL (1.3-2.7)
[2017-12-18 01:54] LABS: PHOSPHORUS 3.5 mg/dL (2.5-4.9)
[2017-12-18 05:35] LABS: TROP-I INTERPRETATION NEGATIVE; TROPONIN-I 0.03 ng/mL (0.0-0.30)
[2017-12-18 09:31] LABS: BASOPHIL (%) 1.4 % (0-1); BASOPHIL COUNT 0.1 K/uL (0-0.1); EOSINOPHIL (%) 4.7 % (0-5); EOSINOPHIL COUNT 0.3 K/uL (0-0.3); HEMATOCRIT 34.3 % (36.0-46.0); HEMOGLOBIN 10.5 G/DL (11.9-15.5); IMMATURE GRANULOCYTE (%) 0.3 % (0.0-0.7); LYMPHOCYTE (%) 14.3 % (15-42); LYMPHOCYTE COUNT 0.8 K/uL (1.0-2.8); MCH 24.2 PG (29.0-34.0); MCHC 30.6 G/DL (30.0-36.0); MONOCYTE (%) 11.5 % (3-12); MONOCYTE COUNT 0.7 K/uL (0-0.8); NEUTROPHIL (%) 67.8 % (45-76); NEUTROPHIL COUNT 3.9 K/uL (1.8-6.4); PLATELET COUNT 251 K/uL (156-360); RBC DIS.WIDTH-CV 18.7 % (11.8-14.6); RED BLOOD COUNT 4.34 M/uL (3.80-5.20); WHITE BLOOD COUNT 5.8 K/uL (4.1-10.2)
[2017-12-18 09:59] LABS: CHLORIDE 95 MEQ/L (99-109); CREATININE 1.2 MG/DL (0.6-1.3); GFR ESTIMATE (CALCULATED) 45 mL/min/; GLUCOSE 121 mg/dL (70-99); POTASSIUM 3.9 MEQ/L (3.7-5.4); SODIUM 136 MEQ/L (136-147); UREA NITROGEN (BUN) 26 mg/dL (9-23)
[2017-12-18 16:58] LABS: APPEARANCE CLEAR ((CLEAR)); BILIRUBIN NEGATIVE; BLOOD NEGATIVE; COLOR YELLOW ((YELLOW)); GLUCOSE (STRIP) NEGATIVE; KETONES NEGATIVE; LEUKOCYTES MODERATE; NITRITE NEGATIVE; PROTEIN (STRIP) NEGATIVE; UROBILINOGEN 0.2 MG/DL (0.2-1.0)
[2017-12-18 17:05] LABS: BACTERIA RARE /HPF; EPITHELIAL CELLS RARE /HPF; HYALINE CASTS 0-5 /LPF; MUCUS TRACE /LPF; RED BLOOD CELLS 0-5 /HPF (0-5); UCUL ADDED? YES; WHITE CELL CASTS TNTC /LPF
[2017-12-19 00:05] VITALS: BP 111/70
[2017-12-19 04:10] VITALS: BP 101/53
[2017-12-19 05:29] LABS: HEMATOCRIT 32.6 % (36.0-46.0); HEMOGLOBIN 9.8 G/DL (11.9-15.5); MCH 23.5 PG (29.0-34.0); MCHC 30.1 G/DL (30.0-36.0); MCV 78.2 FL (83-99); PLATELET COUNT 217 K/uL (156-360); RBC DIS.WIDTH-CV 18.6 % (11.8-14.6); RBC DIS.WIDTH-SD 51.5 % (39-53); RED BLOOD COUNT 4.17 M/uL (3.80-5.20)
[2017-12-19 05:55] LABS: CHLORIDE 93 MEQ/L (99-109); CREATININE 1.5 MG/DL (0.6-1.3); GFR ESTIMATE (CALCULATED) 35 mL/min/; GLUCOSE 223 mg/dL (70-99); SODIUM 134 MEQ/L (136-147); UREA NITROGEN (BUN) 31 mg/dL (9-23)
[2017-12-19 06:56] LABS: BASOPHIL (%) 0 % (0-1); EOSINOPHIL (%) 0 % (0-5); IMMATURE GRANULOCYTE (%) 0.5 % (0.0-0.7); LYMPHOCYTE (%) 16.3 % (15-42); LYMPHOCYTE COUNT 0.3 K/uL (1.0-2.8); MONOCYTE COUNT 0.1 K/uL (0-0.8); NEUTROPHIL (%) 80.2 % (45-76); NEUTROPHIL COUNT 1.6 K/uL (1.8-6.4)
[2017-12-19 07:44] VITALS: BP 119/56
[2017-12-19 11:30] VITALS: BP 120/67
[2017-12-19 12:30] LABS: HEMOGLOBIN A1c (GLYCOHEMOGLOB) 6.6 % (Below 5.7)
[2017-12-19 16:00] VITALS: BP 112/57
[2017-12-19 19:10] VITALS: BP 102/55
[2017-12-20] VITALS (8 sets, daily range): BP systolic 110–157; BP diastolic 56–89
[2017-12-20 04:50] LABS: BASOPHIL (%) 0.1 % (0-1); EOSINOPHIL (%) 0 % (0-5); HEMATOCRIT 33.6 % (36.0-46.0); HEMOGLOBIN 10.3 G/DL (11.9-15.5); IMMATURE GRANULOCYTE (%) 0.4 % (0.0-0.7); LYMPHOCYTE (%) 3.2 % (15-42); LYMPHOCYTE COUNT 0.3 K/uL (1.0-2.8); MCH 23.6 PG (29.0-34.0); MCHC 30.7 G/DL (30.0-36.0); MCV 76.9 FL (83-99); MONOCYTE (%) 2.4 % (3-12); MONOCYTE COUNT 0.2 K/uL (0-0.8); NEUTROPHIL (%) 93.9 % (45-76); NEUTROPHIL COUNT 9.2 K/uL (1.8-6.4); PLATELET COUNT 222 K/uL (156-360); RBC DIS.WIDTH-CV 18.4 % (11.8-14.6); RBC DIS.WIDTH-SD 50.4 % (39-53); RED BLOOD COUNT 4.37 M/uL (3.80-5.20); WHITE BLOOD COUNT 9.8 K/uL (4.1-10.2)
[2017-12-20 05:22] LABS: CHLORIDE 92 mEq/L (99-109); POTASSIUM 4.2 mEq/L (3.7-5.4); SODIUM 132 mEq/L (136-147)
[2017-12-20 05:24] LABS: GLUCOSE 223 mg/dL (70-99)
[2017-12-20 05:27] LABS: CREATININE 1.7 mg/dL (0.6-1.3); GFR ESTIMATE (CALCULATED) 30 mL/min/
[2017-12-20 05:28] LABS: UREA NITROGEN (BUN) 44 mg/dL (9-23)
[2017-12-20 16:25] LABS: UR CREATININE CONCENTRATION 105.4 MG/DL
[2017-12-21 04:26] VITALS: BP 140/69
[2017-12-21 04:59] LABS: BASOPHIL (%) 0 % (0-1); EOSINOPHIL (%) 0 % (0-5); HEMATOCRIT 35.2 % (36.0-46.0); HEMOGLOBIN 10.8 G/DL (11.9-15.5); IMMATURE GRANULOCYTE (%) 0.4 % (0.0-0.7); LYMPHOCYTE COUNT 0.3 K/uL (1.0-2.8); MCH 23.6 PG (29.0-34.0); MCHC 30.7 G/DL (30.0-36.0); MCV 76.9 FL (83-99); MONOCYTE (%) 2.2 % (3-12); MONOCYTE COUNT 0.2 K/uL (0-0.8); NEUTROPHIL (%) 93.4 % (45-76); NEUTROPHIL COUNT 6.8 K/uL (1.8-6.4); PLATELET COUNT 216 K/uL (156-360); RBC DIS.WIDTH-CV 18.6 % (11.8-14.6); RBC DIS.WIDTH-SD 50.1 % (39-53); RED BLOOD COUNT 4.58 M/uL (3.80-5.20); WHITE BLOOD COUNT 7.3 K/uL (4.1-10.2)
[2017-12-21 05:13] LABS: ALBUMIN 2.8 g/dL (3.2-4.8); CHLORIDE 94 mEq/L (99-109)
[2017-12-21 05:14] LABS: POTASSIUM 4.7 mEq/L (3.7-5.4); SODIUM 130 mEq/L (136-147)
[2017-12-21 05:15] LABS: GLUCOSE 198 mg/dL (70-99)
[2017-12-21 05:19] LABS: CREATININE 1.9 mg/dL (0.6-1.3); GFR ESTIMATE (CALCULATED) 27 mL/min/; PHOSPHORUS 4.1 mg/dL (2.5-4.9)
[2017-12-21 05:20] LABS: UREA NITROGEN (BUN) 54 mg/dL (9-23)
[2017-12-21 05:22] LABS: URIC ACID 11.5 mg/dL (3.1-9.2)
[2017-12-21 05:59] LABS: IRON 17 MCG/DL (35-150); TRANSFERRIN (TIBC) 334.4 mg/dL (215-380); TRANSFERRIN SATUR. 5 % (20-55)
[2017-12-21 07:15] VITALS: BP 120/75
[2017-12-21 07:59] LABS: THYROTROPIN (TSH) 5.3 MIU/L (0.4-5.5)
[2017-12-21 11:57] VITALS: BP 130/71
[2017-12-21 15:22] VITALS: BP 140/72
[2017-12-21 20:51] VITALS: BP 134/79
[2017-12-21 22:28] LABS: UR CREATININE CONCENTRATION 72.1 MG/DL
[2017-12-22 00:28] VITALS: BP 134/78
[2017-12-22 05:45] VITALS: BP 133/73
[2017-12-22 05:55] LABS: BASOPHIL (%) 0 % (0-1); EOSINOPHIL (%) 0 % (0-5); HEMATOCRIT 36.9 % (36.0-46.0); HEMOGLOBIN 11.2 G/DL (11.9-15.5); IMMATURE GRANULOCYTE (%) 0.7 % (0.0-0.7); LYMPHOCYTE (%) 5.6 % (15-42); LYMPHOCYTE COUNT 0.3 K/uL (1.0-2.8); MCH 23.3 PG (29.0-34.0); MCHC 30.4 G/DL (30.0-36.0); MCV 76.7 FL (83-99); MONOCYTE (%) 9.8 % (3-12); MONOCYTE COUNT 0.6 K/uL (0-0.8); NEUTROPHIL (%) 83.9 % (45-76); NRBC (%) 0.3 /100 WBC (0-0); PLATELET COUNT 226 K/uL (156-360); RBC DIS.WIDTH-CV 18.5 % (11.8-14.6); RBC DIS.WIDTH-SD 50.6 % (39-53); RED BLOOD COUNT 4.81 M/uL (3.80-5.20); WHITE BLOOD COUNT 5.9 K/uL (4.1-10.2)
[2017-12-22 06:22] LABS: ALBUMIN 2.9 G/DL (3.2-4.8); CHLORIDE 94 MEQ/L (99-109); CREATININE 1.4 MG/DL (0.6-1.3); GFR ESTIMATE (CALCULATED) 38 mL/min/; GLUCOSE 180 mg/dL (70-99); MAGNESIUM 2.3 mg/dl (1.3-2.7); PHOSPHORUS 3.5 mg/dL (2.5-4.9); POTASSIUM 4.8 MEQ/L (3.7-5.4); SODIUM 132 MEQ/L (136-147); UREA NITROGEN (BUN) 58 mg/dL (9-23)
[2017-12-22 07:00] VITALS: BP 143/97
[2017-12-22 11:38] VITALS: BP 156/90
[2017-12-22] MEDS ORDERED: DELTASONE20 M1 PO (14:53)
[2017-12-22] MEDS ORDERED: LASIX40 MG PO (14:53)
[2017-12-22] MEDS ORDERED: CEFTIN500 MG PO (14:53)
[2017-12-22] MEDS ORDERED: METOPROLOL SUCC50 MG PO (14:53)
[2017-12-22] MEDS ORDERED: TOPROL XL50 MG PO (14:55)
[2017-12-22] MEDS ORDERED: FAMOTIDINE20 MG PO (14:59)
== END 2017-12-22 15:30 | disposition home or self-care (01) | DRG 291 ==
LOC: EME 15:44 → EDOF 12-18 01:02 → 4EAST 12-18 01:02 → ENRESERV 12-18 01:04 → 4EAST 12-18 02:56
PROVIDERS: Hospitalist; Internal Medicine; Internal Medicine Nephrology; Physician Assistant
DX: I50.82 Biventricular heart failure (principal); I50.33 Acute on chronic diastolic (congestive) heart failure; J96.01 Acute respiratory failure with hypoxia; N17.9 Acute kidney failure, unspecified; J44.1 Chronic obstructive pulmonary disease with (acute) exacerbation; J44.0 Chronic obstructive pulmonary disease with (acute) lower respiratory infection; J20.9 Acute bronchitis, unspecified; E87.1 Hypo-osmolality and hyponatremia; I95.9 Hypotension, unspecified; I27.29 Other secondary pulmonary hypertension; E11.22 Type 2 diabetes mellitus with diabetic chronic kidney disease; J84.10 Pulmonary fibrosis, unspecified; I48.1 Persistent atrial fibrillation; I08.1 Rheumatic disorders of both mitral and tricuspid valves; R41.0 Disorientation, unspecified; I12.9 Hypertensive chronic kidney disease with stage 1 through stage 4 chronic kidney disease, or unspecified chronic kidney disease; N18.3 Chronic kidney disease, stage 3 (moderate); D64.9 Anemia, unspecified; T50.1X5A Adverse effect of loop [high-ceiling] diuretics, initial encounter; I25.10 Atherosclerotic heart disease of native coronary artery without angina pectoris; E78.5 Hyperlipidemia, unspecified; E03.9 Hypothyroidism, unspecified; F39 Unspecified mood [affective] disorder; I89.0 Lymphedema, not elsewhere classified; M19.90 Unspecified osteoarthritis, unspecified site; E66.9 Obesity, unspecified; Z68.34 Body mass index [BMI] 34.0-34.9, adult; Z99.81 Dependence on supplemental oxygen; Z79.51 Long term (current) use of inhaled steroids; Z79.82 Long term (current) use of aspirin; Z95.1 Presence of aortocoronary bypass graft; Z95.5 Presence of coronary angioplasty implant and graft; Z87.891 Personal history of nicotine dependence; Z87.01 Personal history of pneumonia (recurrent)
CPT/HCPCS: 71045; 71046; 71250; 76770; 80048; 80053; 80069; 81003; 82436; 82570; 82948; 83036; 83540; 83735; 83880; 83935; 84100; 84133; 84156; 84300; 84443; 84466; 84484; 84550; 85025; 85027; 87086; 87641; 93306; 93970; 94640; 94640 76; 94799; 99202; 99281; 99285; J0456; J0696; J1644; J1815; J1940; J1956; J2930; J7512

== ENCOUNTER 2018-01-14 17:44 | Inpatient (IN) | payer OTHER ==
[~2018-01-14] VITALS: Ht 171.4 cm; Wt 95.7 kg
[~2018-01-14 17:44] MED LIST changes: -ALPRAZOLAM0.25 M2 PO; +ALPRAZOLAM0.5 MG PO; +CEFTIN500 MG PO; +FAMOTIDINE20 MG PO; +ULTRAM50 MG PO
[2018-01-14 19:18] LABS: HEMATOCRIT 34.7 % (36.0-46.0); HEMOGLOBIN 10.6 G/DL (11.9-15.5); MCH 24.4 PG (29.0-34.0); MCHC 30.5 G/DL (30.0-36.0); MCV 79.8 FL (83-99); PLATELET COUNT 244 K/uL (156-360); RBC DIS.WIDTH-CV 21.4 % (11.8-14.6); RBC DIS.WIDTH-SD 58.7 % (39-53); RED BLOOD COUNT 4.35 M/uL (3.80-5.20); WHITE BLOOD COUNT 5.9 K/uL (4.1-10.2)
[2018-01-14 19:38] LABS: CHLORIDE 98 mEq/L (99-109); POTASSIUM 3.8 mEq/L (3.7-5.4); SODIUM 135 mEq/L (136-147)
[2018-01-14 19:40] LABS: GLUCOSE 65 mg/dL (70-99)
[2018-01-14 19:41] LABS: TROP-I INTERPRETATION NEGATIVE; TROPONIN-I 0.02 ng/mL (0.0-0.30)
[2018-01-14 19:44] LABS: CREATININE 0.9 mg/dL (0.6-1.3); GFR ESTIMATE (CALCULATED) > 59 mL/min/; UREA NITROGEN (BUN) 20 mg/dL (9-23)
[2018-01-14 20:02] LABS: ABS NEUTROPHIL COUNT 4.5; ANISOCYTOSIS 2+; ATYPICAL LYMPHOCYTE 0.9 %; BAND NEUTROPHILS 0.9 % (0-8.0); BASOPHILS 0.9 %; EOSINOPHIL ABS CT 0.3; EOSINOPHILS 5.3 % (0-5.0); HYPOCHROMASIA 1+; LYMPHOCYTES 10.5 % (15.0-45.0); MACROCYTES 1+; MONOCYTES 6.1 % (0-9.0); PLAT.SUFFICIENCY ADEQUATE; POIKILOCYTOSIS 1+; POLYCHROMASIA 1+; SEG.NEUTROPHILS 75.4 % (46.0-76.0)
[2018-01-14] MEDS ORDERED: ACIDOPHILUS LA1 EACH PO (22:02)
[2018-01-14] MEDS ORDERED: AMMONIUM LACTA140 GM TP (22:03)
[2018-01-14] MEDS ORDERED: AZITHROMYCIN500 M1 PO (22:03)
[2018-01-14] MEDS ORDERED: DIGOXIN125 MCG PO (22:04)
[2018-01-14] MEDS ORDERED: FUROSEMIDE40 MG PO (22:06)
[2018-01-14] MEDS ORDERED: FUROSEMIDE20 MG PO (22:07)
[2018-01-14] MEDS ORDERED: PREDNISONE10 MG PO (22:09)
[2018-01-14] MEDS ORDERED: TUSSIN100 MG/5 M PO (22:09)
[2018-01-14] MEDS ORDERED: CYANOCOBALAM1000 MCG PO (22:11)
[2018-01-14] MEDS ORDERED: CEFTIN500 MG PO (22:14)
[2018-01-14 23:35] LABS: APPEARANCE CLEAR ((CLEAR)); BILIRUBIN NEGATIVE; BLOOD NEGATIVE; COLOR YELLOW ((YELLOW)); GLUCOSE (STRIP) NEGATIVE; KETONES NEGATIVE; LEUKOCYTES SMALL; NITRITE NEGATIVE; PROTEIN (STRIP) NEGATIVE; SPECIFIC GRAVITY 1.012 (1.000-1.030); UROBILINOGEN 0.2 MG/DL (0.2-1.0)
[2018-01-14 23:53] LABS: BACTERIA NONE SEEN /HPF; EPITHELIAL CELLS RARE /HPF; HYALINE CASTS 0-5 /LPF; MUCUS TRACE /LPF; RED BLOOD CELLS 0-5 /HPF (0-5); WHITE BLOOD CELLS 0-5 /HPF (0-5)
[2018-01-15 03:20] VITALS: BP 120/50
[2018-01-15 07:13] VITALS: BP 132/68
[2018-01-15 08:47] LABS: CHLORIDE 98 MEQ/L (99-109); POTASSIUM 3.5 MEQ/L (3.7-5.4); SODIUM 135 MEQ/L (136-147)
[2018-01-15 08:52] LABS: GFR ESTIMATE (CALCULATED) 56 mL/min/; GLUCOSE 70 mg/dL (70-99); UREA NITROGEN (BUN) 19 mg/dL (9-23)
[2018-01-15 09:21] LABS: TROP-I INTERPRETATION NEGATIVE; TROPONIN-I 0.01 ng/mL (0.0-0.30)
[2018-01-15 11:09] LABS: DIGOXIN < 0.3 ng/mL (0.8-2.0)
[2018-01-15 11:40] VITALS: BP 110/61
[2018-01-15 12:51] LABS: TROP-I INTERPRETATION NEGATIVE; TROPONIN-I < 0.01 ng/mL (0.0-0.30)
[2018-01-15 15:30] VITALS: BP 107/53
[2018-01-15 19:52] VITALS: BP 111/60
[2018-01-16] VITALS (7 sets, daily range): BP systolic 95–123; BP diastolic 42–64
[2018-01-16 07:18] LABS: CHLORIDE 99 MEQ/L (99-109); CREATININE 1.1 MG/DL (0.6-1.3); GFR ESTIMATE (CALCULATED) 50 mL/min/; GLUCOSE 82 mg/dL (70-99); SODIUM 137 MEQ/L (136-147); UREA NITROGEN (BUN) 22 mg/dL (9-23)
[2018-01-16 07:32] LABS: POTASSIUM 4.3 MEQ/L (3.7-5.4)
[2018-01-17 03:16] VITALS: BP 119/58
[2018-01-17 06:26] LABS: HEMATOCRIT 34.7 % (36.0-46.0); HEMOGLOBIN 10.3 G/DL (11.9-15.5); MCH 23.7 PG (29.0-34.0); MCHC 29.7 G/DL (30.0-36.0); PLATELET COUNT 267 K/uL (156-360); RBC DIS.WIDTH-CV 21.2 % (11.8-14.6); RBC DIS.WIDTH-SD 59.6 % (39-53); RED BLOOD COUNT 4.34 M/uL (3.80-5.20); WHITE BLOOD COUNT 5.7 K/uL (4.1-10.2)
[2018-01-17 07:41] LABS: CHLORIDE 99 MEQ/L (99-109); CREATININE 1.2 MG/DL (0.6-1.3); GFR ESTIMATE (CALCULATED) 45 mL/min/; GLUCOSE 95 mg/dL (70-99); MAGNESIUM 1.8 mg/dl (1.3-2.7); POTASSIUM 4.6 MEQ/L (3.7-5.4); SODIUM 136 MEQ/L (136-147); UREA NITROGEN (BUN) 26 mg/dL (9-23)
[2018-01-17 08:27] VITALS: BP 110/51
[2018-01-17 12:00] VITALS: BP 121/56
[2018-01-17 16:13] VITALS: BP 159/68
[2018-01-17 20:16] VITALS: BP 114/57
[2018-01-18] VITALS (7 sets, daily range): BP systolic 111–126; BP diastolic 52–58
[2018-01-18 07:50] LABS: CHLORIDE 97 MEQ/L (99-109); CREATININE 1.2 MG/DL (0.6-1.3); GFR ESTIMATE (CALCULATED) 45 mL/min/; GLUCOSE 95 mg/dL (70-99); MAGNESIUM 1.8 mg/dl (1.3-2.7); POTASSIUM 4.2 MEQ/L (3.7-5.4); SODIUM 137 MEQ/L (136-147); UREA NITROGEN (BUN) 24 mg/dL (9-23)
[2018-01-19] VITALS (7 sets, daily range): BP systolic 97–150; BP diastolic 49–74
[2018-01-19 06:48] LABS: BASOPHIL (%) 1.3 % (0-1); BASOPHIL COUNT 0.1 K/uL (0-0.1); EOSINOPHIL (%) 7.8 % (0-5); EOSINOPHIL COUNT 0.5 K/uL (0-0.3); HEMATOCRIT 33.9 % (36.0-46.0); HEMOGLOBIN 10.1 G/DL (11.9-15.5); IMMATURE GRANULOCYTE (%) 0.3 % (0.0-0.7); LYMPHOCYTE COUNT 0.9 K/uL (1.0-2.8); MCH 23.7 PG (29.0-34.0); MCHC 29.8 G/DL (30.0-36.0); MCV 79.6 FL (83-99); MONOCYTE (%) 13.5 % (3-12); MONOCYTE COUNT 0.8 K/uL (0-0.8); NEUTROPHIL (%) 62.1 % (45-76); NEUTROPHIL COUNT 3.7 K/uL (1.8-6.4); PLATELET COUNT 271 K/uL (156-360); RBC DIS.WIDTH-CV 21.3 % (11.8-14.6); RBC DIS.WIDTH-SD 58.8 % (39-53); RED BLOOD COUNT 4.26 M/uL (3.80-5.20)
[2018-01-20 03:35] VITALS: BP 126/69
[2018-01-20 08:00] VITALS: BP 108/55
[2018-01-20] MEDS ORDERED: LOPRESSOR25 MG PO (09:59)
[2018-01-20] MEDS ORDERED: ATIVAN0.5 MG PO (09:59)
[2018-01-20] MEDS ORDERED: MORPHINE CON20 MG/M1 PO (09:59)
[2018-01-20] MEDS ORDERED: ANASPAZ0.125 MG PO (09:59)
[2018-01-20 12:00] VITALS: BP 110/67
== END 2018-01-20 13:45 | disposition hospice, home (50) | DRG 292 ==
LOC: EME 17:44 → 2EAST 22:39 → EDOF 22:39 → ENRESERV 22:40 → 2EAST 01-15 02:31
PROVIDERS: Hospitalist; Internal Medicine; Physician Assistant; Student in an Organized Health Care Education/Training Program
DX: I11.0 Hypertensive heart disease with heart failure (principal); I50.82 Biventricular heart failure; I50.33 Acute on chronic diastolic (congestive) heart failure; I27.29 Other secondary pulmonary hypertension; J44.9 Chronic obstructive pulmonary disease, unspecified; J96.11 Chronic respiratory failure with hypoxia; Z99.81 Dependence on supplemental oxygen; I95.9 Hypotension, unspecified; I34.2 Nonrheumatic mitral (valve) stenosis; I48.2 Chronic atrial fibrillation; J84.10 Pulmonary fibrosis, unspecified; Z66 Do not resuscitate; Z51.5 Encounter for palliative care; R04.0 Epistaxis; I25.10 Atherosclerotic heart disease of native coronary artery without angina pectoris; E03.9 Hypothyroidism, unspecified; E66.9 Obesity, unspecified; Z68.34 Body mass index [BMI] 34.0-34.9, adult; E78.5 Hyperlipidemia, unspecified; E87.6 Hypokalemia; J98.11 Atelectasis; K59.00 Constipation, unspecified; Z87.891 Personal history of nicotine dependence; Z91.81 History of falling; Z95.1 Presence of aortocoronary bypass graft; Z95.5 Presence of coronary angioplasty implant and graft; Z82.49 Family history of ischemic heart disease and other diseases of the circulatory system; Z83.3 Family history of diabetes mellitus
CPT/HCPCS: 71045; 71046; 71275; 80048; 80162; 81003; 82948; 83605; 83735; 83880; 84484; 85025; 85027; 87040; 93005; 93970; 94640; 94640 76; 94760; 94799; 99202; 99281; 99285; J1644; J1940; J2405; J7040